=== PATIENT | female | born 1935 | race Caucasian/White ===

== ENCOUNTER 2017-07-11 19:20 | Inpatient (IN) | payer OTHER, MEDICAID ==
[~2017-07-11] VITALS: Ht 162.6 cm; Wt 64.0 kg
--- NOTE | 2017-07-11 19:20 | NUR ---
Patient was BIBA and taken to bed 08 via gurney per EMS.
[2017-07-11 19:23] VITALS: BP 184/115
--- NOTE | 2017-07-11 19:25 | NUR ---
82 y/o f biba from [facility] FOR ALOC X 3 HRS AGO. PER EMS STAFF UNFAMILIAR WITH PT MENTAL STATUS BASELINE D/T PT ARRIVED TO THEIR FACILITY X 3 DAYS AGO. PT NON-VERBAL AT THE MOMENT, RESPONDS TO VERBAL STIMULI WITH HEAD MOVEMENT AND CLOSING HER EYES. PT DENIES ANY PAIN AT THE MOMENT.HX CVA, DM, DEMENTIA,HTN, PACEMAKER, LEFT SIDED WEAKNESS. ON ASSISTANT CORPORATE CONTROLLER, ER MD MADE AWARE OF VS.
--- NOTE | 2017-07-11 19:25 | NUR ---
Note undone in EDM - 07/11/17 at 0 by JEROD 82 y/o f tono from [facility] FOR ALOC X 3 HRS AGO. PER EMS STAFF UNFAMILIAR WITH PT MENTAL STATUS BASELINE D/T PT ARRIVED TO THEIR FACILITY X 3 DAYS AGO. PT APHASIC, RESPONDS TO VERBAL STIMULI WITH HEAD MOVEMENT AND CLOSING HER EYES. PT DENIES ANY PAIN AT THE MOMENT.HX CVA, DM, DEMENTIA,HTN, PACEMAKER, LEFT SIDED WEAKNESS. ON NEONATAL NURSE, ER MD MADE AWARE OF VS.
[2017-07-11] MEDS ORDERED: NACL 0.9% 500 ML IV SCH (19:26)
[2017-07-11] MEDS ORDERED: ASPI81CT89 PO (19:28)
[2017-07-11] MEDS ORDERED: FLUC200T PO (19:28)
[2017-07-11] MEDS ORDERED: METF500T PO (19:28)
[2017-07-11] MEDS ORDERED: VAS10 PO (19:28)
[2017-07-11] MEDS ORDERED: ACET-2619 PO (19:28)
[2017-07-11 20:02] LABS: BASOPHILS # (AUTO) 0.1 K/uL (0.00-0.22); EOSINOPHILS # (AUTO) 0.3 K/uL (0-0.4); EOSINOPHILS % (AUTO) 3.6 % (0.0-4.0); HEMATOCRIT 40.8 % (36-48); HEMOGLOBIN 13.7 g/dL (12.0-16.0); LYMPHOCYTES # (AUTO) 2.1 K/uL (2.5-16.5); LYMPHOCYTES % (AUTO) 29.3 % (20.5-51.1); MEAN CORPUSCULAR HEMOGLOBIN 31 pg (27-31); MEAN CORPUSCULAR HGB CONC 34 g/dL (33-37); MEAN CORPUSCULAR VOLUME 92 fL (80-94); MONOCYTES # (AUTO) 0.5 K/uL (0.8-1.0); MONOCYTES % (AUTO) 7.4 % (1.7-9.3); NEUTROPHILS # (AUTO) 4.1 K/uL (1.8-7.7); NEUTROPHILS % (AUTO) 58.7 % (42.2-75.2); PLATELET COUNT (AUTO) 246 K/uL (140-450); RED BLOOD CELL COUNT(AUTO) 4.43 MIL/uL (4.20-5.40); RED CELL DISTRIBUTION WIDTH 11.9 % (11.6-13.7); WHITE BLOOD COUNT (AUTO) 7.1 K/uL (4.8-10.8)
[2017-07-11 20:27] LABS: PROTHROMBIN TIME 10.8 secs (10.8-13.4)
--- NOTE | 2017-07-11 20:30 | NUR ---
PT VERBALIZED TO FEEL PAIN TO R SIDE OF HEAD AND FACE. PT STATES SHE FELL YESTERDAY AT [facility] WHERE SHE CAME FROM TODAY. ER MADE AWARED.
[2017-07-11 20:31] LABS: APPEARANCE,URINE HAZY (CLEAR); BILIRUBIN,URINE 1+ (NEGATIVE); BLOOD, URINE NEGATIVE (NEGATIVE); COLOR,URINE YELLOW (YELLOW); LEUKOCYTE ESTERASE ,URINE NEGATIVE (NEGATIVE); NITRITE, URINE NEGATIVE (NEGATIVE); PH,URINE 5.5 (5.0-9.0); UGLUCOSE TRACE (NEGATIVE)
[2017-07-11 20:37] LABS: RBC,URINE 0-5 (RARE) /HPF (0-5)
[2017-07-11 20:43] LABS: ANION GAP 10.8 (8-16); ASPARTATE AMINOTRANSFERASE 14 U/L (15-37); CARBON DIOXIDE 32.3 mmol/L (21-32); CHLORIDE 107 mmol/L (98-107); CREATININE 1.3 mg/dL (0.6-1.3); GLUCOSE 249 mg/dL (74-106); POTASSIUM 4.1 mmol/L (3.5-5.1); SODIUM SERUM 146 mmol/L (136-145); TOTAL BILIRUBIN 0.6 mg/dL (0.0-1.0); UREA NITROGEN, BLOOD 21 mg/dL (7-18)
[2017-07-11 20:44] LABS: ALBUMIN 2.8 g/dL (3.4-5.0)
--- NOTE | 2017-07-11 20:54 | NUR ---
ER MD MADE AWARE OF PT BP READINGS 190/80. PT DENIES ANY CHEST PAIN AT THE MOMENT. C/O PAIN TO R SIDE OF HEAD AND FACE.
[2017-07-11] MEDS ORDERED: KETOROLAC 30 MG/ML VIAL IVP ONE (20:55)
--- NOTE | 2017-07-11 21:02 | NUR ---
Patient taken to CT.
[2017-07-11] MEDS ORDERED: LEVOFLOXACIN 500 MG/D5W PREMIX 100 ML IV ONE (21:10)
--- NOTE | 2017-07-11 21:12 | NUR ---
PT BACK FROM CT SCAN.
[2017-07-11] MEDS ORDERED: hydrALAZINE 20 MG/ML VIAL IVP ONE (21:25)
[2017-07-11] MEDS ORDERED: ACETAMINOPHEN 325 MG TAB PO PRN (21:35)
[2017-07-11] MEDS ORDERED: ONDANSETRON 4 MG/2 ML VIAL IM/IVP PRN (21:35)
[2017-07-11] MEDS ORDERED: MORPHINE SULFATE 2 MG/ML SYR IVP PRN (21:35)
[2017-07-11] MEDS ORDERED: HYDROcodone/APAP 7.5/325 MG 1 TAB PO PRN (21:35)
[2017-07-11] MEDS ORDERED: DOCUSATE SODIUM 100 MG GELCAP PO PRN (21:35)
--- NOTE | 2017-07-11 21:54 | NUR ---
Patient will be admitted to care of DR STARK.. Admited to TELEMETRY. Will go to room 121B. Belongings list completed. Report to JUANY REYES.
--- NOTE | 2017-07-11 21:55 | NUR ---
PT TAKEN VIA GURNEY BY RN AND EMT TO FLOOR. NO S/S OF DISTRESS NOTED UPON TRANFER.
[2017-07-11 22:00] VITALS: BP 175/80
--- NOTE | 2017-07-11 22:00 | NUR ---
ADMITTED A 82F FROM ER. CAME BY SAUNDRA DUE TO ALOC, UTI, S/P FALL . PT IS AWAKE BUT CONFUSED. LUXEMBOURGISH SPEAKING. BEDREST. SKIN ASSESSMENT DONE . SKIN INTACT, WITH SMALL OLD BUMP ON THE LT WRIST. HAS IV ACCESS ON THE LT HAND #20 , LEVAQUIN IVPB STILL INFUSING. RODNEY EYES WITH SLIGHT REDNESS. REPOSITIONED PT FOR COMFORT. BED ON LOW POSITION. BED ALARM ON FOR SAFETY. CALL LIGHT PLACED WITHIN EASY REACH. ROOM CLOSED TO STATION FOR FREQUENT ROUNDS . WILL FOLLOW UP ALL ADMIT ORDERS.
[2017-07-11 22:18] LABS: CHOL/HDL RATIO 7.7 (1-4.5); FREE T4 (FREE THYROXINE) 0.96 ng/dL (0.76-1.46); MAGNESIUM 2.1 mg/dL (1.8-2.4); PHOSPHORUS 3.9 mg/dL (2.5-4.9); THYROID STIMULATING HORMONE 1.86 uIU/mL (0.34-3.74)
[2017-07-11] MEDS: NACL 0.9% 1,000 ML IV SCH (22:21)
[2017-07-11] MEDS ORDERED: ALBUTEROL SULFATE/IPRATROPIU 3 ML SOL IH PRN (22:25)
[2017-07-11] MEDS ORDERED: FUROSEMIDE 100 MG/10 ML VIAL IV SCH (22:25)
[2017-07-11] MEDS ORDERED: LEVOFLOXACIN 500 MG/D5W PREMIX 100 ML IV SCH (22:25)
--- NOTE | 2017-07-11 22:30 | NUR ---
DR. ONTIVEROS ,RESIDENT CAME AND SEEN AND EXAMINED PT.
[2017-07-11] MEDS ORDERED: DEXTROSE 50% 50 ML SYR IVP PRN (22:40)
--- NOTE | 2017-07-11 22:57 | NUR ---
MRSA NARES SPECMEN COLLECTED AND WILL SEND TO LAB.
--- NOTE | 2017-07-11 23:10 | NUR ---
CALLED [facility] AND ABLE TO TO TALKED TO JUANY JOHANSEN. SHE SAID PT WAS ADMITTED THERE FROM [facility] LAST JUL 09. SHE SAID PT DID NOT HAVE ANY FALL BUT JUST FOUND ALTERED AFTER FAMILY WHO VISITED LEFT THE FACILITY. NO FLU VACCINE GIVEN THERE. WILL HAVE TO CALL FAMILY.
--- NOTE | 2017-07-11 23:15 | NUR ---
PT ALTERED ,TRIED TO CALL FAMILY TO GET OTHER MEDICAL INFORMATION, SUZY MCCORMACK TEL BUT NO ANSWER. WILL FOLLOW UP CALL TOMORROW.
[2017-07-12] MEDS ORDERED: ASPIRIN 81 MG TAB.CHEW PO SCH
[2017-07-12 00:05] VITALS: BP 161/63
--- NOTE | 2017-07-12 01:40 | NUR ---
PT PULLED OUT IV ACCESS ON THE LT HAND. DISCONTINUED. SHAMIKA STARTED NEW IV ACCESS ON THE RT HAND#22. CLEAR AND PATENT. WRAPPED WITH KERLIX. IVF INFUSING WELL .
--- NOTE | 2017-07-12 03:00 | NUR ---
SLEEPING WELL. NO S/S OD ANY DISCOMFORT NOR DISTRESS NOTED.
[2017-07-12] MEDS ORDERED: CLINDAMYCIN 600 MG/4 ML VIAL ONE (03:37)
[2017-07-12 03:56] VITALS: BP 162/71
[2017-07-12] MEDS: CLINDAMYCIN 600 MG in DEXTROSE 5% 50 ML IV SCH ×3 (04:47→20:17)
[2017-07-12] MEDS: BLOOD GLUCOSE MONITORING 1 DEV DEV FS SCH ×4 (06:06→20:25)
[2017-07-12] MEDS: INSULIN LISPRO SLIDING SCALE 100 UNITS/ML VIAL SUBQ PRN ×3 (06:08→20:24)
--- NOTE | 2017-07-12 06:08 | NUR ---
BLOOD SUGAR WAS CHECKED RESULT 237. INSULIN COVERAGE GIVEN ORDERED. STILL AHS IVF INFUSING WELL ON THE RT HAND #22.
--- NOTE | 2017-07-12 06:15 | NUR ---
SCD MACHINE APPLIED TO BILATERAL LOWER LEG ORDERED.
--- NOTE | 2017-07-12 06:37 | NUR ---
ABLE TO CONTACT DM HOWARD THIS AM . MADE AWARE OF THE ADMISSION OF HIS MOM HERE. HE IS COMING TO SEE PT TODAY.
--- NOTE | 2017-07-12 07:25 | NUR ---
ENDORSED PT IN STABLE CONDITION TO AM NURSE.
--- NOTE | 2017-07-12 07:30 | NUR ---
RECEIVED REPORT FROM STEREO COMPILER NURSE, PT IS SLEEPING IN BED BUT EASILY AWAKEN, PT IS A/OX2, AMBULATES WITH ASSIST, IV IS ON THE RIGHT HAND, PATENT, INTACT, FLUSHING WELL, SKIN IS INTACT, PT IS ON O2 2L NC, NO S/S OF RESPIRATORY DISTRESS OR DISCOMFORT NOTED, DISCUSSED PLAN OF CARE WITH PT, PT VERBALIZED UNDERSTANDING, SAFETY/FALL/ASPIRATION PRECAUTIONS ARE IN PLACE, CALL LIGHT IS WITHIN REACH, WILL CONTINUE TO MONITOR.
[2017-07-12 07:32] LABS: BASOPHILS # (AUTO) 0.1 K/uL (0.00-0.22); BASOPHILS % (AUTO) 2.3 % (0.0-2.0); EOSINOPHILS # (AUTO) 0.2 K/uL (0-0.4); HEMATOCRIT 40.8 % (36-48); LYMPHOCYTES # (AUTO) 1.6 K/uL (2.5-16.5); LYMPHOCYTES % (AUTO) 26.8 % (20.5-51.1); MEAN CORPUSCULAR HEMOGLOBIN 31 pg (27-31); MEAN CORPUSCULAR HGB CONC 34 g/dL (33-37); MEAN CORPUSCULAR VOLUME 92 fL (80-94); MONOCYTES # (AUTO) 0.5 K/uL (0.8-1.0); MONOCYTES % (AUTO) 7.9 % (1.7-9.3); NEUTROPHILS # (AUTO) 3.4 K/uL (1.8-7.7); PLATELET COUNT (AUTO) 246 K/uL (140-450); RED BLOOD CELL COUNT(AUTO) 4.46 MIL/uL (4.20-5.40); WHITE BLOOD COUNT (AUTO) 5.8 K/uL (4.8-10.8)
[2017-07-12 07:46] LABS: ANION GAP 11.1 (8-16); CARBON DIOXIDE 30.7 mmol/L (21-32); CHLORIDE 108 mmol/L (98-107); CREATININE 1.2 mg/dL (0.6-1.3); GLUCOSE 233 mg/dL (74-106); POTASSIUM 3.8 mmol/L (3.5-5.1); SODIUM SERUM 146 mmol/L (136-145); UREA NITROGEN, BLOOD 20 mg/dL (7-18)
[2017-07-12 08:00] VITALS: BP 183/84
[2017-07-12] MEDS: FUROSEMIDE 100 MG/10 ML VIAL IV SCH (08:18)
[2017-07-12] MEDS: ASPIRIN 81 MG TAB.CHEW PO SCH (08:18)
[2017-07-12] MEDS: PANTOPRAZOLE 40 MG INJ VIAL IVP SCH (08:18)
--- NOTE | 2017-07-12 08:18 | NUR ---
DUE MEDICATIONS GIVEN, PT TOLERATED WELL, WILL CONTINUE TO MONITOR.
[2017-07-12] MEDS ORDERED: metFORMIN 500 MG TAB PO SCH (09:00)
[2017-07-12] MEDS ORDERED: ENALAPRIL 10 MG TAB PO SCH ×2 (09:00→12:45)
[2017-07-12] MEDS ORDERED: ATORVASTATIN 80 MG TAB PO SCH (09:00)
--- NOTE | 2017-07-12 10:32 | NUR ---
PATIENT HAS BEEN SCREENED AND CATEGORIZED HIGH NUTRITION RISK. PATIENT WILL BE SEEN WITHIN 1-2 DAYS OF ADMISSION. 07/12/17-07/13/[address]
[2017-07-12] MEDS: NACL 0.9% 1,000 ML IV SCH ×2 (10:54→13:08)
--- NOTE | 2017-07-12 11:00 | NUR ---
CABLE TOOL OPERATOR IS AT PATIENT'S BEDSIDE.
--- NOTE | 2017-07-12 11:50 | NUR ---
PATIENT IS RESTING IN BED, PATIENT'S FAMILY ARE AT BEDSIDE. CALL LIGHT WITHIN REACH.
[2017-07-12 12:00] VITALS: BP 186/80
--- NOTE | 2017-07-12 12:30 | NUR ---
I LET DR. PEARCE KNOW THE PATIENT'S BLOOD PRESSURE WAS ELEVATED 186/80 AND HR: 72, DR. PEARCE SAID HE WOULD PUT IN AN ORDER TO GIVE VASOTEC 10MG NOW.
--- NOTE | 2017-07-12 12:47 | NUR ---
CALLED SMILEY FROM [facility] SHE SAID THEY ARE AT FULL RISK AND JUST FAX REVIEW TO THEM. I FAXED INITIAL REVIEW TO [phone] PHONE SMILEY [phone]
--- NOTE | 2017-07-12 13:20 | NUR ---
RECHECKED PATIENT'S BP 133/68, HR: 73 AT THIS TIME.
--- NOTE | 2017-07-12 14:25 | NUR ---
CALLED [facility] TO ASK IF THEY HAD ANY INFORMATION ON THE PATIENT'S PACEMAKER BECAUSE THE DOCTOR WAS REQUESTING TO HAVE THE PACEMAKER INTERROGATED. I WAS TOLD BY [facility] THAT THEY DID NOT HAVE ANY INFORMATION ON THE PACEMAKER.
--- NOTE | 2017-07-12 14:46 | NUR ---
CALLED [facility] AT , I REACHED THEIR VOICEMAIL, I LET THEM KNOW I WAS CALLING FROM [facility] TO REQUEST MEDICAL RECORDS I LEFT MY NAME, PATIENT'S NAME/ AND CALL BACK NUMBER. I LET THEM KNOW I WAS CALLING TO OBTAIN THE FAX NUMBER TO WHERE I COULD SUBMIT MY REQUEST.
--- NOTE | 2017-07-12 15:06 | NUR ---
07/12/17 RD INITIAL ASSESSMENT COMPLETED PLEASE REFER TO NUTRITION ASSESSMENT UNDER CARE ACTIVITY FOR ESTIMATED NUTRITIONAL NEEDS. 1. CONTINUE PUREE + 60 GMS CONSISTENT CARBOHYDRATE DIET 2. ADD DIET HEALTH SHAKE TID 3. ENCOURAGE INCREASED PO INTAKE TOLERATED 4. RD TO FOLLOW UP WITHIN 2-3 DAYS; HIGH RISK TATUM ALAS, ILEANA
[2017-07-12 16:00] VITALS: BP 148/63
--- NOTE | 2017-07-12 16:00 | NUR ---
FAXED OVER REQUEST FOR MEDICAL RECORDS TO [facility] AT .
--- NOTE | 2017-07-12 17:30 | NUR ---
PT SLEEPING IN BED AT THIS TIME, NO S/S OF RESPIRATORY DISTRESS OR DISCOMFORT NOTED, CALL LIGHT WITHIN REACH.
[2017-07-12] MEDS: metFORMIN 500 MG TAB PO SCH (17:34)
--- NOTE | 2017-07-12 19:25 | NUR ---
ENDORSED PT TO PROCESS ENG NURSE FOR CONTINUITY OF CARE, PT STABLE AT THIS TIME.
--- NOTE | 2017-07-12 19:28 | NUR ---
RECEIVED PT AWAKE ON BED, AAOX2 DANISH SPEAKING ONLY, TALKING TO FAMILY MEMBERS AT BEDSIDE, VITAL SIGNS TAKEN, BP SLIGHTLY ELEVATED, ASYMPTOMATIC, WILL GIVE DUE BP MEDICATION, IVF INFUSING WELL, PLAN OF CARE DISCUSS WITH DAUGHTER AT BEDSIDE, SAFETY MEASURES IN PLACE, SIDE RAILS UP AND BED ALARM ON, CALL LIGHT WITHIN REACH.
[2017-07-12 20:00] VITALS: BP 165/72
[2017-07-12] MEDS: ENALAPRIL 10 MG TAB PO SCH (20:17)
[2017-07-12] MEDS: LEVOFLOXACIN 250 MG/D5 PREMIX 50 ML IV SCH (20:25)
--- NOTE | 2017-07-12 20:30 | NUR ---
BLOOD SUGAR CHECKED WITH 232 RESULT, COVERAGE GIVEN, PT ABLE TO TOLERATE MILK SHAKE GIVEN BY DAUGHTER, DUE MEDS CRUSHED AND GIVEN WITH APPLE SAUCE, ALL NEEDS ATTENDED.
--- NOTE | 2017-07-12 22:00 | NUR ---
PT INCONTINENT OF URINE, PERINEAL CARE DONE, KEPT SKIN CLEAN AND DRY, REPOSITIONED Q2H AND OFFLOAD PRESSURE AREAS, MONITORED CLOSELY.
--- NOTE | 2017-07-12 23:16 | NUR ---
PT OCCASIONALLY TAKE OFF NASAL CANNULA, SAT-93-94% ON ROOM AIR, REINFORCE TO LEAVE NASAL CANNULA IN PLACE BUT PT CONFUSED, UNABLE TO FOLLOW COMMAND, PUT BACK BACK NASAL CANNULA, FREQUENT ROUNDS MADE.
[2017-07-13] VITALS (7 sets, daily range): BP systolic 136–216; BP diastolic 58–83
--- NOTE | 2017-07-13 01:30 | NUR ---
PT STILL TAKING OFF NASAL CANNULA, SAT-93%, NO SIGNS OF SOB OR PAIN, IV LINE BEEPING, SITE RE-TAPED AND COVERED WITH ROLLED GAUZE, MONITORED CLOSELY.
--- NOTE | 2017-07-13 04:00 | NUR ---
PT SLEEPING, EASILY AROUSABLE, VITAL SIGNS TAKEN, BP SLIGHTLY ELEVATED, ASYMPTOMATIC, SAT-94% ON ROOM AIR, IVF INFUSING WELL, MONITORED CLOSELY.
[2017-07-13] MEDS: NACL 0.9% 1,000 ML IV SCH ×2 (04:35→13:52)
[2017-07-13] MEDS: CLINDAMYCIN 600 MG in DEXTROSE 5% 50 ML IV SCH ×3 (04:36→20:01)
--- NOTE | 2017-07-13 05:50 | NUR ---
PT SLEEPING, EASILY AROUSABLE, BLOOD SUGAR CHECKED WITH 234 RESULT, COVERAGE GIVEN, NO DISTRESS NOTED, IVF INFUSING WELL, MONITORED CLOSELY.
[2017-07-13] MEDS: INSULIN LISPRO SLIDING SCALE 100 UNITS/ML VIAL SUBQ PRN ×3 (06:03→17:16)
[2017-07-13] MEDS: BLOOD GLUCOSE MONITORING 1 DEV DEV FS SCH ×4 (06:35→20:40)
--- NOTE | 2017-07-13 07:13 | NUR ---
PT AWAKE, NO SIGNS OF DISTRESS, REPORT GIVEN TO JUANY COBURN FOR CONTINUITY OF CARE.
--- NOTE | 2017-07-13 07:15 | NUR ---
RECEIVED REPORT FROM SENIOR ORACLE PL SQL DEVELOPER NURSE, PT IS AWAKE, RESTING IN BED, PT IS A/OX2, PT IS ON BEDREST, IV IS ON THE RIGHT HAND, PATENT, INTACT, FLUSHING WELL, SKIN IS INTACT, NO S/S OF RESPIRATORY DISTRESS OR DISCOMFORT NOTED, DISCUSSED PLAN OF CARE WITH PT, PT VERBALIZED UNDERSTANDING, SAFETY/FALL/ASPIRATION PRECAUTIONS ARE IN PLACE, CALL LIGHT IS WITHIN REACH, WILL CONTINUE TO MONITOR.
[2017-07-13 07:37] LABS: ANION GAP 10.9 (8-16); CHLORIDE 108 mmol/L (98-107); CREATININE 1.2 mg/dL (0.6-1.3); GLUCOSE 247 mg/dL (74-106); POTASSIUM 3.9 mmol/L (3.5-5.1); SODIUM SERUM 145 mmol/L (136-145); UREA NITROGEN, BLOOD 18 mg/dL (7-18)
[2017-07-13 08:54] LABS: T4 (THYROXINE) 6.1 ug/dL (4.5-12.0)
[2017-07-13] MEDS: PANTOPRAZOLE 40 MG INJ VIAL IVP SCH (08:57)
[2017-07-13] MEDS: FUROSEMIDE 100 MG/10 ML VIAL IV SCH (08:58)
[2017-07-13] MEDS: metFORMIN 500 MG TAB PO SCH ×2 (08:58→17:13)
[2017-07-13] MEDS: ATORVASTATIN 20 MG TAB PO SCH (08:59)
[2017-07-13] MEDS: ENALAPRIL 10 MG TAB PO SCH ×2 (08:59→20:01)
[2017-07-13] MEDS: ASPIRIN 81 MG TAB.CHEW PO SCH (08:59)
--- NOTE | 2017-07-13 09:00 | NUR ---
DUE MEDICATIONS GIVEN. WILL NOTIFY DOCTOR PT IS HAVING DIFFICULTY SWALLOWING MEDICATION.
--- NOTE | 2017-07-13 11:00 | NUR ---
PT IS RESTING IN BED, NO S/S OF RESPIRATORY DISTRESS OR DISCOMFORT NOTED, FAMILY IS AT PATIENT'S BEDSIDE.
--- NOTE | 2017-07-13 11:37 | NUR ---
DR. KEMP (PRIOR AUTHORIZATION TECHNICIAN) IN PATIENT'S ROOM SPEAKING WITH PATIENT AND PATIENT'S FAMILY MEMBERS.
--- NOTE | 2017-07-13 12:30 | NUR ---
CHECKED PATIENT'S VITAL SIGNS, CURRENT BLOOD PRESSURE 216/80, HR:60, DR. LOZANO NOTIFIED. PER DR. LOZANO WILL ORDER BLOOD PRESSURE MEDICATION FOR PT STAT.
[2017-07-13] MEDS ORDERED: hydrALAZINE 20 MG/ML VIAL IVP PRN (12:45)
--- NOTE | 2017-07-13 13:40 | NUR ---
BLEACH RANGE OPERATOR AT PATIENT BEDSIDE AT THIS TIME.
--- NOTE | 2017-07-13 13:54 | NUR ---
FAXED CONCURRENT REVIEW TO [facility] [phone] PHONE SMILEY [phone]
--- NOTE | 2017-07-13 14:10 | NUR ---
FAXED OVER REQUEST FOR RELEASE OF MEDICAL RECORDS TO [facility] ([place]
--- NOTE | 2017-07-13 17:21 | NUR ---
* ST NOTE * Pt seen at bedside w/family and nsg present. Pt consenting to evaluation w/family present. Bedside dysphagia and oral mechanism exams completed. See evaluation report for further details. Pt tolerating 4/4 alternating PO trials of puree apple sauce 3-5 CCs at a time via a spoon w/o s/s of aspiration. Pt also tolerating 4/6 alternating PO trials of thin liquid apple juice via a straw w/out s/s of aspiration but exhibiting coughing after PO intake of 2/6 trials of thin liquid apple juice via a straw. Pt then tolerating 4/4 alternating PO trials of nectar-thick apple juice 3-5 CCs at a time via a spoon w/o s/s of aspiration. Pt requiring minimal to moderate verbal, tactile & visual cueing to clear oral cavity of pocketed foods. Pt, caregivers/family and caregiver/nsg education completed regarding safe swallow compensatory strategies pt, caregivers/family and caregivers/nsg could utilize to aid pt w/swallow function and to clear oral cavity of pocketed food/residue, w/pt indifferent but caregivers/family and caregivers/nsg verbalizing understanding and agreement w/clinician's recommendations. It is thus recommended pt's PO diet consistency be modified to Puree textures w/[place]-thickened liquids for all meals, with pt indifferent but caregivers/family and caregivers/nsg verbalizing understanding and agreement. No further ST follow up recommended at this time. Pt, caregivers/family and caregiver/nsg education completed regarding results of evaluation, benefits of abiding by aspiration precautions and recommended PO diet consistency, and prognosis for improvement, with pt indifferent but caregivers/family and caregivers/nsg verbalizing understanding and agreement w/clinician's recommendations. Recommend: - PO diet consistency of PUREE TEXTURES W/NECTAR-THICK LIQUIDS - Sit pt up at 90 degree angle during PO intake - Cueing/Reminders for pt's family during setup of food tray of aspiration precautions prior to PO intake - CLOSE supervision during PO intake by caregivers/staff/family to assure STRICT aspiration precautions are in place - Pt requires total assistance w/feeding - Feeder to sit pt up at 70-90 degree angle during PO intake, feed pt slowly, alternating btwn solids and liquids and utilizing small bites/sips - Check for pocketed food and complete oral care after PO intake No further ST follow up recommended at this time. G8996 CK G8997 CJ G8998 CJ NOMS Level 3 Time In/Out 16:30 - 17:00
--- NOTE | 2017-07-13 17:30 | NUR ---
PT IS RESTING IN BED, NO S/S OF RESPIRATORY DISTRESS OR DISCOMFORT NOTED, FAMILY IS AT BEDSIDE.
--- NOTE | 2017-07-13 19:19 | NUR ---
ENDORSED PT TO DRAFTER ELECTROMECHANICAL NURSE FOR CONTINUITY OF CARE, PT STABLE AT THIS TIME.
--- NOTE | 2017-07-13 19:20 | NUR ---
RECEIVED PT SLEEPING, EASILY AROUSABLE, CITIZEN [place] SPEAKING, AAOX1, VITAL SIGNS TAKEN, BP SLIGHTLY ELEVATED, ASYMPTOMATIC, ON O2 AT 2L/NC, NO SIGNS OF PAIN OR SOB NOTED, RT LEG SPLINT IN PLACE COVERED WITH RAFAELA WRAPPED, ELEVATED WITH PILLOW, IVF INFUSING WELL, SITE COVERED WITH RAFAELA WRAPPED, SAFETY MEASURES IN PLACE, CALL LIGHT WITHIN REACH, REPOSITION Q2H AND OFFLOAD PRESSURE AREAS.
--- NOTE | 2017-07-13 20:30 | NUR ---
BLOOD SUGAR CHECKED WITH 133 RESULT, NO COVERAGE NEEDED, HOB ELEVATED FOR ASPIRATION PRECAUTION, DUE PO MEDS CRUSHED AND GIVEN WITH SMALL AMOUNT OF APPLE SAUCE, INSTRUCTED TO OPEN MOUTH AND PT JUST POCKETING IT AND THEN SPIT IT OUT, GAVE THE REST OF THE MEDICATION TOGETHER WITH THICKENED APPLE JUICE, SWALLOWED THE MEDS AFTER SEVERAL MINUTES OF COAXING, DUE IV ANTIBIOTIC ADMINISTERED, ALL NEEDS ATTENDED.
[2017-07-13] MEDS: LEVOFLOXACIN 250 MG/D5 PREMIX 50 ML IV SCH (20:37)
--- NOTE | 2017-07-13 22:10 | NUR ---
PT OCCASIONALLY TAKES OFF NASAL CANNULA, SAT-94% ON ROOM AIR, MONITORED CLOSELY.
[2017-07-13] MEDS ORDERED: METOPROLOL 5 MG/5 ML VIAL IVP SCH (23:25)
--- NOTE | 2017-07-13 23:41 | NUR ---
PT AWAKE, VITAL SIGNS TAKEN, BP-180/77, HR-68, NO SIGNS OF PAIN OR SOB, DR ONTIVEROS MADE AWARE, WITH NEW ORDER, METOPROLOL IVP GIVEN ORDERED, MONITORED CLOSELY.
[2017-07-14 00:42] VITALS: BP 178/68
--- NOTE | 2017-07-14 00:45 | NUR ---
PT AWAKE, BP RECHECKED-178/68, HR-63, ASYMPTOMATIC, NO SIGNS OF PAIN OR SOB, DR ONTIVEROS MADE AWARE, NO NEW ORDER, DR ONTIVEROS SAID JUST CONTINUE TO MONITOR PT.
--- NOTE | 2017-07-14 03:30 | NUR ---
PT SLEEPING, EASILY AROUSABLE, VITAL SIGNS TAKEN, BP-179/72, HR-65, ASYMPTOMATIC, NO SIGNS OF PAIN OR SOB NOTED, DR ONTIVEROS MADE AWARE, NO NEW ORDER, HE SAID TO CONTINUE MONITOR PT AND HE WILL ENDORSE TO AM DOCTORS, CHARGE NURSE SUZAN MADE AWARE.
[2017-07-14 04:00] VITALS: BP 179/72
[2017-07-14] MEDS: CLINDAMYCIN 600 MG in DEXTROSE 5% 50 ML IV SCH ×3 (04:15→20:43)
[2017-07-14] MEDS: NACL 0.9% 1,000 ML IV SCH ×3 (04:15→21:07)
[2017-07-14] MEDS: INSULIN LISPRO SLIDING SCALE 100 UNITS/ML VIAL SUBQ PRN ×3 (05:57→17:30)
--- NOTE | 2017-07-14 06:03 | NUR ---
PT AWAKE, BP RECHECKED-147/50, HR-68, DR ONTIVEROS MADE AWARE, BLOOD SUGAR CHECKED WITH 193 RESULT, COVERAGE GIVEN, NO DISTRESS NOTED, MONITORED CLOSELY.
[2017-07-14 06:25] LABS: BASOPHILS # (AUTO) 0.2 K/uL (0.00-0.22); BASOPHILS % (AUTO) 2.9 % (0.0-2.0); EOSINOPHILS # (AUTO) 0.3 K/uL (0-0.4); EOSINOPHILS % (AUTO) 4.4 % (0.0-4.0); HEMATOCRIT 37.5 % (36-48); HEMOGLOBIN 12.8 g/dL (12.0-16.0); LYMPHOCYTES # (AUTO) 1.8 K/uL (2.5-16.5); LYMPHOCYTES % (AUTO) 27.3 % (20.5-51.1); MEAN CORPUSCULAR HEMOGLOBIN 32 pg (27-31); MEAN CORPUSCULAR HGB CONC 34 g/dL (33-37); MEAN CORPUSCULAR VOLUME 93 fL (80-94); MONOCYTES # (AUTO) 0.2 K/uL (0.8-1.0); MONOCYTES % (AUTO) 3.7 % (1.7-9.3); NEUTROPHILS # (AUTO) 4.2 K/uL (1.8-7.7); NEUTROPHILS % (AUTO) 61.7 % (42.2-75.2); PLATELET COUNT (AUTO) 232 K/uL (140-450); RED BLOOD CELL COUNT(AUTO) 4.02 MIL/uL (4.20-5.40); RED CELL DISTRIBUTION WIDTH 11.8 % (11.6-13.7); WHITE BLOOD COUNT (AUTO) 6.7 K/uL (4.8-10.8)
[2017-07-14 06:42] LABS: ANION GAP 11.9 (8-16); CHLORIDE 108 mmol/L (98-107); CREATININE 1.1 mg/dL (0.6-1.3); GLUCOSE 181 mg/dL (74-106); POTASSIUM 3.9 mmol/L (3.5-5.1); SODIUM SERUM 144 mmol/L (136-145); UREA NITROGEN, BLOOD 14 mg/dL (7-18)
[2017-07-14] MEDS: BLOOD GLUCOSE MONITORING 1 DEV DEV FS SCH ×4 (06:49→20:54)
--- NOTE | 2017-07-14 07:15 | NUR ---
RECEIVED REPORT FROM SAWING AND ASSEMBLY SUPERVISOR, PT IS SLEEPING IN BED, PT IS AOX1, IV IS ON THE RIGHT HAND, PATENT, INTACT, INFUSING WELL, SKIN IS INTACT, NO S/S OF ACUTE DISTRESS NOTED. PT IS ON ROOM AIR. RIGHT LEG SPLINT INTACT, CLEAN AND DRY. FALL, ASPIRATION, AND BED SORE PRECAUTIONS ARE IN PLACE. CALL LIGHT IS WITHIN REACH, WILL CONTINUE TO MONITOR.
--- NOTE | 2017-07-14 07:18 | NUR ---
PT SLEEPING, NO SIGNS OF DISTRESS, REPORT GIVEN TO JUANY DEE FOR CONTINUITY OF CARE.
[2017-07-14 08:28] VITALS: BP 149/62
--- NOTE | 2017-07-14 09:30 | NUR ---
PT WAS MEDICATED WITH THICKENING LIQUID. PT TOLERATED WELL.
[2017-07-14] MEDS: FUROSEMIDE 100 MG/10 ML VIAL IV SCH (09:41)
[2017-07-14] MEDS: metFORMIN 500 MG TAB PO SCH ×2 (09:42→17:02)
[2017-07-14] MEDS: ATORVASTATIN 20 MG TAB PO SCH (09:42)
[2017-07-14] MEDS: PANTOPRAZOLE 40 MG INJ VIAL IVP SCH (09:42)
[2017-07-14] MEDS: ENALAPRIL 10 MG TAB PO SCH ×2 (09:43→20:42)
[2017-07-14] MEDS: ASPIRIN 81 MG TAB.CHEW PO SCH (09:43)
--- NOTE | 2017-07-14 10:30 | NUR ---
PHYSICAL THERAPY SEEN THE PT. PT WAS SITTING IN THE CHAIR. NO ACUTE DISTRESS NOTED.
[2017-07-14 12:00] VITALS: BP 175/72
--- NOTE | 2017-07-14 12:34 | NUR ---
CM NOTE CONCURRENT REVIEW FAXED TO [facility] / [phone], ATTN: SMILEY #[phone]
--- NOTE | 2017-07-14 15:40 | NUR ---
NOTIFIED . ABOUT PT'S SYSTOLIC BP 175. . DR WILL PUT IN NEW ORDERS.
--- NOTE | 2017-07-14 15:50 | NUR ---
[employer]TR[employer] PACEMAKER INTERROGATION DONE AT BEDSIDE.
[2017-07-14 16:00] VITALS: BP 182/68
[2017-07-14] MEDS ORDERED: amLODIPine 5 MG TAB PO SCH (16:30)
[2017-07-14] MEDS ORDERED: LACTOBACILLUS RHAMNOSUS GG 1 EACH CAP PO SCH (17:00)
--- NOTE | 2017-07-14 19:33 | NUR ---
ENDORSED PT TO SALES CLERK FOOD. PT IS IN STABLE CONDITION AND WITHOUT S/S OF DISTRESS.
--- NOTE | 2017-07-14 19:34 | NUR ---
RECEIVED BEDSIDE REPORT FROM DAY SHIFT NURSE, HERBERTH RN, PT STABLE, NO DISTRESS NOTED, AAOX2, SKIN INTACT, IV TO THE R HAND 24G RUNNING NS @ 50ML/HR, CALL LIGHT WITHIN REACH, FAMILY BY BEDSIDE, ALL SAFETY PRECAUTION MET, INITIAL ASSESSMENT DONE, WILL CONTINUE TO MONITOR.
[2017-07-14 19:59] VITALS: BP 162/66
[2017-07-14] MEDS: LEVOFLOXACIN 250 MG/D5 PREMIX 50 ML IV SCH (20:43)
--- NOTE | 2017-07-14 20:43 | NUR ---
DUE MEDICATION GIVEN, TRIED TO GIVE CRUSHED PO MEDS WITH THICKEN WATER, PT SPITS IT OUT. NO DISTRESS NOTED, CALL LIGHT WITHIN REACH, WILL CONTINUE TO MONITOR.
[2017-07-14] MEDS ORDERED: ENALAPRIL 10 MG TAB PO SCH (21:00)
--- NOTE | 2017-07-14 22:09 | NUR ---
PT WAS PICKED UP FOR CT HEAD W/O CONTRAST, PT STABLE.
--- NOTE | 2017-07-14 22:30 | NUR ---
PT BACK FROM CT, PT STABLE, NO DISTRESS NOTED, CALL LIGHT WITHIN REACH, WILL CONTINUE TO MONITOR.
[2017-07-15] VITALS (7 sets, daily range): BP systolic 126–191; BP diastolic 56–88
--- NOTE | 2017-07-15 00:30 | NUR ---
PT HAD A LARGE BM, SOFT TO FORM, YELLOW BROWNISH COLOR. PT RESTING, NO DISTRESS NOTED CALL LIGHT WITHIN REACH, WILL CONTINUE TO MONITOR.
--- NOTE | 2017-07-15 02:20 | NUR ---
CHECKED ON PT, PT SLEEPING, STABLE, NO DISTRESS NOTED, CALL LIGHT WITHIN REACH, WILL CONTINUE TO MONITOR.
--- NOTE | 2017-07-15 04:02 | NUR ---
PT BP 191/88, PAGED DR BUCHANAN, 0336 TALKED TO , STATED UNDERSTANDING AND WILL CHECK ORDERS.
[2017-07-15] MEDS: CLINDAMYCIN 600 MG in DEXTROSE 5% 50 ML IV SCH ×3 (04:56→20:16)
--- NOTE | 2017-07-15 04:56 | NUR ---
GAVE HYDRALAZINE 5MG IVP PER MD ORDER, WILL RECHECK BP IN 1 HR.
[2017-07-15] MEDS ORDERED: hydrALAZINE 20 MG/ML VIAL IVP SCH (05:00)
[2017-07-15] MEDS: NACL 0.9% 1,000 ML IV SCH (05:52)
--- NOTE | 2017-07-15 05:53 | NUR ---
RECHECKED BP 129/56 HR 77, PT STABLE, NO DISTRESS NOTED, CALL LIGHT WITHIN REACH, WILL CONTINUE TO MONITOR.
[2017-07-15] MEDS: BLOOD GLUCOSE MONITORING 1 DEV DEV FS SCH ×4 (06:11→20:15)
[2017-07-15 06:13] LABS: BASOPHILS # (AUTO) 0.2 K/uL (0.00-0.22); BASOPHILS % (AUTO) 1.3 % (0.0-2.0); EOSINOPHILS # (AUTO) 0.2 K/uL (0-0.4); EOSINOPHILS % (AUTO) 1.1 % (0.0-4.0); HEMATOCRIT 37.9 % (36-48); LYMPHOCYTES # (AUTO) 1.5 K/uL (2.5-16.5); LYMPHOCYTES % (AUTO) 10.9 % (20.5-51.1); MEAN CORPUSCULAR HEMOGLOBIN 32 pg (27-31); MEAN CORPUSCULAR HGB CONC 34 g/dL (33-37); MEAN CORPUSCULAR VOLUME 93 fL (80-94); MONOCYTES # (AUTO) 0.5 K/uL (0.8-1.0); MONOCYTES % (AUTO) 3.6 % (1.7-9.3); NEUTROPHILS # (AUTO) 11.5 K/uL (1.8-7.7); NEUTROPHILS % (AUTO) 83.1 % (42.2-75.2); PLATELET COUNT (AUTO) 236 K/uL (140-450); RED BLOOD CELL COUNT(AUTO) 4.09 MIL/uL (4.20-5.40); RED CELL DISTRIBUTION WIDTH 11.8 % (11.6-13.7); WHITE BLOOD COUNT (AUTO) 13.9 K/uL (4.8-10.8)
[2017-07-15] MEDS: INSULIN LISPRO SLIDING SCALE 100 UNITS/ML VIAL SUBQ PRN ×3 (06:24→16:50)
[2017-07-15 06:44] LABS: ANION GAP 9.8 (8-16); CHLORIDE 103 mmol/L (98-107); CREATININE 0.9 mg/dL (0.6-1.3); GLUCOSE 255 mg/dL (74-106); POTASSIUM 3.8 mmol/L (3.5-5.1); SODIUM SERUM 138 mmol/L (136-145); UREA NITROGEN, BLOOD 16 mg/dL (7-18)
--- NOTE | 2017-07-15 07:20 | NUR ---
GAVE BEDSIDE REPORT TO DAY SHIFT NURSE, ALEXANDER RN, PT STABLE, NO DISTRESS NOTED.
--- NOTE | 2017-07-15 07:31 | NUR ---
ENDORSEMENT WAS RECEIVED FROM AMY. PATIENT IS SLEEPING QUIETLY, RESPIRATION EVEN, UNLABOR, SKIN WARM DRY, COLOR WITHIN NORMAL LIMIT. IV 22G RIGHT FOREARM, WTIH NS @ 50 ML/HR. AT BEDSIDE. CALL LIGHT WITHIN REACH. WILL CONTINUE TO MONITOR.
--- NOTE | 2017-07-15 08:35 | NUR ---
CM NOTE CONCURRENT REVIEW FAXED TO [facility] / [phone], ATTN: SMILEY #[phone]
[2017-07-15] MEDS: ATORVASTATIN 20 MG TAB PO SCH (09:00)
[2017-07-15] MEDS: LACTOBACILLUS RHAMNOSUS GG 1 EACH CAP PO SCH (09:00)
[2017-07-15] MEDS ORDERED: amLODIPine 5 MG TAB PO SCH (09:00)
[2017-07-15] MEDS: ENALAPRIL 10 MG TAB PO SCH ×2 (09:00→20:18)
[2017-07-15] MEDS: ASPIRIN 81 MG TAB.CHEW PO SCH (09:00)
[2017-07-15] MEDS: PANTOPRAZOLE 40 MG INJ VIAL IVP SCH (09:21)
[2017-07-15] MEDS: FUROSEMIDE 20 MG/2 ML VIAL IVP SCH (09:23)
[2017-07-15] MEDS: metFORMIN 500 MG TAB PO SCH ×2 (09:23→17:00)
--- NOTE | 2017-07-15 09:34 | NUR ---
PATIENT IS SLEEPY, AROUSABLE TO VOICE OR TOUCH, BUT IMMEDIATELY FALLS BACK TO SLEEP, RESUFED TO SWALLOW. PO MEDS WERE HELD. DR. NUÑEZ WAS AT BEDSIDE. GRANDDAUGHTER WAS ALSO AT BEDSIDE. WILL CONTINUE TO MONITOR
--- NOTE | 2017-07-15 10:15 | NUR ---
PATIENT IS NOW AWAKE, SITTING UP, INTERACTING WITH FAMILY. TAKEN LIQUID, AND APPLESAUCE, NO ISSUE WITH SWALLOWING. DAUGHTER AND SON AT BEDSIDE.
--- NOTE | 2017-07-15 10:41 | NUR ---
BED BATH WAS GIVEN, ELIANE CARE WAS DONE. PATIENT TOLERATED WELL. FAMILY AT BEDSIDE. WILL CONTINUE TO MONITOR
[2017-07-15] MEDS: hydrALAZINE 20 MG/ML VIAL IVP PRN (12:48)
--- NOTE | 2017-07-15 12:48 | NUR ---
HYDRALAZINE GIVEN PER DR MONGE FOR BP 169/76, PT SLEEPING QUIETLY AROUSES EASILY BY VOICE, GRANDSON AT BEDSIDE. WILL CONTINUE TO MONITOR.
--- NOTE | 2017-07-15 12:55 | NUR ---
07/15/17 RD FOLLOW UP ASSESSMENT COMPLETED PLEASE REFER TO NUTRITION ASSESSMENT UNDER CARE ACTIVITY FOR ESTIMATED NUTRITIONAL NEEDS. 1. RECOMMEND ADDING NECTAR THICKENED LIQUIDS TO CURRENT PUREE DIET ORDER 2. CONTINUE DIET HEALTH SHAKES TID 3. ENCOURAGE INCREASED PO INTAKE TOLERATED 4. IF/WHEN PT CONSUMES >50% AVERAGE PO INTAKE CONSIDER ADDING CCHO 60 GM TO DIET ORDER. --CURRENT LIBERALIZATION OF DIET TO HELP INCREASE PT PO INTAKE. 5. RD TO FOLLOW UP WITHIN 3-5 DAYS; MODERATE RISK THERESA MARTINEZ RD Addendum: 07/16/17 at [address] D/T CHANGE IN PT STATUS RD TO CHANGE F/U FROM MODERATE RISK (3-5 DAYS) TO HIGH RISK (2-3 DAYS). PT PENDING ANOTHER SWALLOW EVAL D/T NOT BEING ABLE TO TOLERATE CURRENT DIET ORDER. PER MORNING BED HUDDLE DISCUSSION IF PT FAILS SWALLOW EVAL, POSSIBLE PEG TUBE PLACEMENT. THERESA MARTINEZ RD
--- NOTE | 2017-07-15 19:35 | NUR ---
REPORT GIVEN TO OPEN WINDER NURSE, PT IN STABLE CONDITION.
--- NOTE | 2017-07-15 19:36 | NUR ---
PATIENT REPORT RECEIVED FROM MORNING NURSE. PATIENT IS AWAKE AND ALERT. FAMILY MEMBERS ARE AT BEDSIDE. NO SIGNS AND SYMPTOMS OF DISTRESS NOTED, NO COMPLAINTS OF PAIN AT THIS TIME. IV SITE NOTED ON RIGHT FOREARM, ASYMPTOMATIC, INTACT, PATENT. IVF INFUSING WELL. BED IN LOWEST POSITION, SIDE RAILS UP AND CALL LIGHT WITHIN REACH. WILL CONTINUE TO MONITOR.
--- NOTE | 2017-07-15 21:00 | NUR ---
PATIENT REFUSED PO MED, ENALAPRIL. CHECKED BP, BP IS WITHIN NORMAL LIMITS. WILL CONTINUE TO MONITOR.
[2017-07-15] MEDS: LEVOFLOXACIN 250 MG/D5 PREMIX 50 ML IV SCH (21:20)
[2017-07-16] VITALS: BP 146/67
--- NOTE | 2017-07-16 | NUR ---
CHECKED ON PATIENT, PATIENT IS ASLEEP. NO SIGNS AND SYMPTOMS OF DISTRESS NOTED. BED IN LOWEST POSITION, SIDE RAILS UP AND CALL LIGHT WITHIN REACH.
[2017-07-16] MEDS: NACL 0.9% 1,000 ML IV SCH (01:53)
[2017-07-16 04:00] VITALS: BP 101/60
[2017-07-16] MEDS: CLINDAMYCIN 600 MG in DEXTROSE 5% 50 ML IV SCH ×3 (04:22→20:14)
[2017-07-16 05:47] LABS: BASOPHILS # (AUTO) 0.2 K/uL (0.00-0.22); BASOPHILS % (AUTO) 2.2 % (0.0-2.0); EOSINOPHILS # (AUTO) 0.1 K/uL (0-0.4); EOSINOPHILS % (AUTO) 1.6 % (0.0-4.0); HEMATOCRIT 36.7 % (36-48); HEMOGLOBIN 12.4 g/dL (12.0-16.0); LYMPHOCYTES # (AUTO) 1.5 K/uL (2.5-16.5); LYMPHOCYTES % (AUTO) 19.2 % (20.5-51.1); MEAN CORPUSCULAR HEMOGLOBIN 32 pg (27-31); MEAN CORPUSCULAR HGB CONC 34 g/dL (33-37); MEAN CORPUSCULAR VOLUME 93 fL (80-94); MONOCYTES # (AUTO) 0.3 K/uL (0.8-1.0); MONOCYTES % (AUTO) 4.2 % (1.7-9.3); NEUTROPHILS # (AUTO) 5.6 K/uL (1.8-7.7); NEUTROPHILS % (AUTO) 72.8 % (42.2-75.2); PLATELET COUNT (AUTO) 247 K/uL (140-450); RED BLOOD CELL COUNT(AUTO) 3.93 MIL/uL (4.20-5.40); RED CELL DISTRIBUTION WIDTH 12.2 % (11.6-13.7); WHITE BLOOD COUNT (AUTO) 7.7 K/uL (4.8-10.8)
[2017-07-16 06:17] LABS: ANION GAP 13.6 (8-16); CARBON DIOXIDE 27.1 mmol/L (21-32); CHLORIDE 103 mmol/L (98-107); CREATININE 1.4 mg/dL (0.6-1.3); GLUCOSE 252 mg/dL (74-106); POTASSIUM 3.7 mmol/L (3.5-5.1); SODIUM SERUM 140 mmol/L (136-145); UREA NITROGEN, BLOOD 19 mg/dL (7-18)
[2017-07-16] MEDS: BLOOD GLUCOSE MONITORING 1 DEV DEV FS SCH ×4 (06:36→21:00)
[2017-07-16] MEDS: INSULIN LISPRO SLIDING SCALE 100 UNITS/ML VIAL SUBQ PRN ×3 (06:37→16:40)
--- NOTE | 2017-07-16 07:08 | NUR ---
PATIENT REPORT GIVEN TO MORNING NURSE AT BEDSIDE. PATIENT IS IN STABLE CONDITION
--- NOTE | 2017-07-16 07:18 | NUR ---
RECEIVED ENDORSEMENT FROM DEVANG. PATIENT IS AWAKE. RESPIRATION IS UNLABOR, NO DISTRESS NOTED. SKIN DRY WARM TO THE TOUCH, COLOR WITHIN NORMAL LIMIT. CALL LIGHT WITHIN REACH. WILL CONTINUE TO MONITOR.
[2017-07-16 08:00] VITALS: BP 138/61
[2017-07-16] MEDS: metFORMIN 500 MG TAB PO SCH ×2 (08:00→17:00)
--- NOTE | 2017-07-16 08:00 | NUR ---
PATIENT IS DROWSY, AROUSABLE BY TOUCH. RESPIRATION IS EVEN, UNLABOR, LUNGS SOUND COARSE ON BILATERAL UPPER LOBES. CARDIAC: REGULAR RHYTHM WITH PACEMAKER. BOWEL SOUND ACTIVE ON 4 QUADRANTS. SKIN INTACT, DRY AND WARM. IV 22G ON RIGHT FOREARM WITH NS @ 50ML/HR, PATENT AND INTACT. NO DISTRESS IS NOTED. CALL LIGHT WITHIN REACH. WILL CONTINUE TO MONITOR
[2017-07-16] MEDS: ASPIRIN 81 MG TAB.CHEW PO SCH (09:00)
[2017-07-16] MEDS: ENALAPRIL 10 MG TAB PO SCH ×2 (09:00→21:00)
[2017-07-16] MEDS: ATORVASTATIN 20 MG TAB PO SCH (09:00)
[2017-07-16] MEDS: LACTOBACILLUS RHAMNOSUS GG 1 EACH CAP PO SCH (09:00)
[2017-07-16] MEDS: amLODIPine 5 MG TAB PO SCH (09:00)
--- NOTE | 2017-07-16 09:00 | NUR ---
PT AWAKE SITTING UP, FOLLOWS COMMANDS APPROPRIATELY, PT COUGHS AND GAGS AND DOES NOT SWALLOW WHEN BREAKFAST BEING FED, WILL HOLD PO FOR NOW, DR OMNGE MADE AWARE. SWALLOW RE-EVALUATION PENDING. PT REMAINS ON OFFICE DIRECTOR, NO C/O PAIN, WILL CONTINUE TO MONITOR.
[2017-07-16] MEDS: FUROSEMIDE 20 MG/2 ML VIAL IVP SCH (09:22)
[2017-07-16] MEDS: PANTOPRAZOLE 40 MG INJ VIAL IVP SCH (09:22)
--- NOTE | 2017-07-16 10:00 | NUR ---
PATIENT IS AWAKE. PACEMAKER'S ROUTINE FUNCTION CHECK IS BEING DONE. FAMILY IS AT BEDSIDE. CALL LIGHT WITHIN REACH. WILL CONTINUE TO MONITOR
--- NOTE | 2017-07-16 10:01 | NUR ---
CM NOTE CONCURRENT REVIEW FAXED TO [facility] / [phone], ATTN: SMILEY #[phone] [id number]
[2017-07-16] MEDS ORDERED: INSULIN DETEMIR 100 UNITS/ML 10 ML VIAL SUBQ SCH (10:15)
--- NOTE | 2017-07-16 11:05 | NUR ---
FAMILY AT BEDSIDE FEEDING PT THICKENED APPLE JUICE, FAMILY EDUCATED ON ASPIRATION PRECAUTION AND PENDING SWALLOW EVAL, FAMILY INSIST THAT PT NEEDS FEEDING TUBE/PEG TUBE, DR MONGE CALLED TO BEDSIDE REQUESTED BY FAMILY TO DISCUSS FUTURE PLAN OF CARE.
[2017-07-16 12:00] VITALS: BP 137/66
--- NOTE | 2017-07-16 12:36 | NUR ---
PATIENT IS ASLEEP COMFORTABLY, NO DISTRESS NOTED, NO COMPLAIN OF PAIN. CALL LIGHT WITHIN REACH. WILL CONTINUE TO MONITOR
[2017-07-16 16:00] VITALS: BP 160/66
--- NOTE | 2017-07-16 16:00 | NUR ---
PATIENT IS AWAKE, ALERT. VITAL SIGN WAS TAKEN. NO DISTRESS WAS NOTED. CALL LIGHT WITHIN REACH. WILL CONTINUE TO MONITOR
--- NOTE | 2017-07-16 17:03 | NUR ---
SWALLOW EVAL IS PENDING. PO METFORMIN HELD
--- NOTE | 2017-07-16 17:41 | NUR ---
DR MONGE AT BEDSIDE, PLAN OF CARE DISCUSSED WITH FAMILY, AWAITING SWALLOW EVAL, PT AWAKE LOOKING AROUND, APPEARS IN NAD, PT REMAINS ON APPRAISER LAND, WILL CONTINUE TO MONITOR.
--- NOTE | 2017-07-16 18:22 | NUR ---
PATIENT IS AWAKE, ALERT. FAMILY MEMBER IS AT BEDSIDE. SWALLOW EVAL PENDING. CALL LIGHT WITHIN REACH, WILL CONTINUE TO MONITOR
--- NOTE | 2017-07-16 19:00 | NUR ---
SPEECH THERAPIST CAME TO DO SWALLOW EVALUATION. PATIENT FAILED THE EVAL PER THERAPIST. THERAPIST SPOKE WITH THE RESIDENT ABOUT PUTTING PATIENT ON NPO AT THIS TIME.
--- NOTE | 2017-07-16 19:26 | NUR ---
* ST RE-EVAL NOTE * Pt seen at bedside. Pt awake but appearing to be confused at this time, oriented x1. Bedside dysphagia and oral mechanism re-evaluations completed. See evaluation report for further details. Pt tolerating 2/4 alternating PO trials of puree apple sauce 3-5 CCs at a time via a spoon w/o s/s of aspiration, but exhibiting coughing immediately after PO intake of last 2 boluses. Pt also tolerating 2/4 alternating PO trials of honey-thick apple juice 3-5 CCs at a time via a spoon, w/o s/s of aspiration, but also demonstrating coughing w/gargly voicing after PO intake of HTL. It is thus recommended pt be placed as NPO with an RD referral for artificial means of nutrition at this time 2/2 to moderate to severe oropharyngeal dysphagia potentially d/t change in pt's mental status. It is also recommended pt receive skilled FRUIT PICKER MACHINE OPERATOR services to further assess least restrictive PO diet consistency if appropriate, with pt and caregivers/nsg verbalizing understanding and agreement w/clinician's recommendations. ST to ff 1-2x in next 3-4 days. Pt and caregivers/nsg education completed regarding results of evaluation; benefits of abiding by NPO status and recommendation for artificial means of nutrition; benefits of receiving skilled FRUIT PICKER MACHINE OPERATOR services; POC; and prognosis for improvement; with pt and caregivers/nsg verbalizing understanding and agreement w/clinician's recommendations. Recommend: - NPO - RD eval for artificial means of nutrition via NG, PEG or TPN 2/2 to pt at high risk for aspiration and choking d/t moderate to severe oropharyngeal dysphagia - Oral hygiene care daily ST to follow up 1-2x in next 3-4 days. G8996 CL G8997 CK NOMS Level 4 Time In/Out 18:50 - 19:20
--- NOTE | 2017-07-16 19:26 | NUR ---
REPORT GIVEN TO PLATE HANGER NURSE. PATIENT IS STABLE
--- NOTE | 2017-07-16 19:27 | NUR ---
RECEIVED PT FROM DAY NURSE, PT IN STABLE CONDITION. PT ALOC. PT IS AWAKE AND ALERT. PT IS ON 2L O2 VIA NC, SKIN IS INTACT. IV TO R FA 22G INTACT AND INFUSING WELL. RESPIRATIONS ARE EVEN AND UNLABORED. PT HAS RT LOWER EXT SPLINT FOR RT FIBULAR FX. BOWEL SOUNDS ARE PRESENT. PT HAD SWALLOW EVAL AND DID NOT PASS. PT WILL BE KEPT NPO. INITIAL ASSESSMENT COMPLETED. PLAN OF CARE DISCUSSED WITH PT AT BEDSIDE, REINFORCEMENT NEEDED. ALL SAFETY PRECAUTIONS MET, CALL LIGHT WITHIN REACH, WILL CONTINUE TO MONITOR.
[2017-07-16 20:00] VITALS: BP 170/70
[2017-07-16] MEDS: hydrALAZINE 20 MG/ML VIAL IVP PRN (20:50)
[2017-07-16] MEDS: INSULIN DETEMIR 100 UNITS/ML 10 ML VIAL SUBQ SCH (20:50)
--- NOTE | 2017-07-16 20:52 | NUR ---
SPOKE TO DR. BUCHANAN REGARDING PTS B/P 170/70. ELANAPRIL CANNOT BE GIVEN AT THIS TIME, PT IS NPO AND DID NOT PASS SWALLOW EVAL. DR. BUCHANAN SAID TO ADMINISTER HYDRALAZINE IVP. ALSO ASKED REGARDING INSULIN BECAUSE PT IS NPO. PT HAS SCHEDULADED LEVEMIR ORDERED AND HUMALOG FOR BS 186. DR. BUCHANAN SAID TO ADMINISTER LEVEMIR FOR NOW AND HOLD HUMALOG. WILL CARRY OUT NEW ORDERS
[2017-07-16] MEDS: DEXT 5% / NACL 0.45% 1,000 ML IV SCH (21:06)
[2017-07-16] MEDS: LEVOFLOXACIN 250 MG/D5 PREMIX 50 ML IV SCH (21:41)
[2017-07-17] VITALS: BP 138/75
--- NOTE | 2017-07-17 | NUR ---
PT RESTING IN BED, CLEAN AND DRY. NO S/S OF DISTRESS NOTED. WILL CONTINUE TO MONITOR
[2017-07-17] MEDS ORDERED: HALOPERIDOL IM 5 MG/ML VIAL IM ONE (02:00)
--- NOTE | 2017-07-17 02:07 | NUR ---
DR. BUCHANAN IN TO SEE PT. WILL CARRY OUT NEW ORDERS
--- NOTE | 2017-07-17 02:07 | NUR ---
PAGED DR. BUCHANAN PT IS VERY RESTLESS, TALKING TO HERSELF, AND NOT SLEEPING. PT IS PULLING ON IV LINE.
[2017-07-17 04:00] VITALS: BP 156/57
[2017-07-17] MEDS: CLINDAMYCIN 600 MG in DEXTROSE 5% 50 ML IV SCH ×3 (05:18→21:06)
[2017-07-17] MEDS: INSULIN LISPRO SLIDING SCALE 100 UNITS/ML VIAL SUBQ PRN ×3 (06:01→21:16)
[2017-07-17] MEDS: BLOOD GLUCOSE MONITORING 1 DEV DEV FS SCH ×4 (06:39→21:06)
[2017-07-17 06:55] LABS: BASOPHILS # (AUTO) 0.2 K/uL (0.00-0.22); BASOPHILS % (AUTO) 3.5 % (0.0-2.0); EOSINOPHILS # (AUTO) 0.2 K/uL (0-0.4); EOSINOPHILS % (AUTO) 3.3 % (0.0-4.0); HEMATOCRIT 37.7 % (36-48); LYMPHOCYTES # (AUTO) 1.5 K/uL (2.5-16.5); LYMPHOCYTES % (AUTO) 25.2 % (20.5-51.1); MEAN CORPUSCULAR HEMOGLOBIN 32 pg (27-31); MEAN CORPUSCULAR HGB CONC 35 g/dL (33-37); MEAN CORPUSCULAR VOLUME 92 fL (80-94); MONOCYTES # (AUTO) 0.4 K/uL (0.8-1.0); MONOCYTES % (AUTO) 6.4 % (1.7-9.3); NEUTROPHILS # (AUTO) 3.7 K/uL (1.8-7.7); NEUTROPHILS % (AUTO) 61.6 % (42.2-75.2); PLATELET COUNT (AUTO) 201 K/uL (140-450); RED BLOOD CELL COUNT(AUTO) 4.09 MIL/uL (4.20-5.40)
[2017-07-17 07:19] LABS: ANION GAP 7.2 (8-16); CHLORIDE 104 mmol/L (98-107); GLUCOSE 215 mg/dL (74-106); POTASSIUM 3.2 mmol/L (3.5-5.1); SODIUM SERUM 139 mmol/L (136-145); UREA NITROGEN, BLOOD 15 mg/dL (7-18)
--- NOTE | 2017-07-17 07:19 | NUR ---
ENDORSED PLAN OF CARE TO VERA RN AT THE BEDSIDE FOR CONTINUATION OF CARE. PT REMAINS STABLE. NO S/S OF DISTRESS NOTED.
--- NOTE | 2017-07-17 07:20 | NUR ---
RECEIVED REPORT FROM THE UI SOFTWARE ENGINEER NURSE AT BEDSIDE FOR CONTINUITY OF CARE. PT IS SOUND ASLEEP. NO SIGNS OF DISTRESS. V/S WITHIN NORMAL LIMITS EXCEPT OF ELEVATED BP. SKIN IS INTACT. IV ON R FA 2G D5 1/2 NS INFUSING AT 60ML/HR. MORNING LABS UNREMARKABLE, EXCEPT K AT 3.2. WILL NOTIFY . PLAN FOR TODAY: NPO. GET CONSENT FOR JPEG PLACEMENT FROM FAMILY MEMBERS. WILL CONTINUE TO MONITOR PT.
[2017-07-17 08:00] VITALS: BP 161/73
[2017-07-17] MEDS: metFORMIN 500 MG TAB PO SCH ×2 (08:00→16:49)
[2017-07-17] MEDS: amLODIPine 5 MG TAB PO SCH (09:00)
[2017-07-17] MEDS: ASPIRIN 81 MG TAB.CHEW PO SCH (09:00)
[2017-07-17] MEDS: LACTOBACILLUS RHAMNOSUS GG 1 EACH CAP PO SCH (09:00)
[2017-07-17] MEDS: ATORVASTATIN 20 MG TAB PO SCH (09:00)
[2017-07-17] MEDS: ENALAPRIL 10 MG TAB PO SCH ×2 (09:00→21:00)
[2017-07-17] MEDS: PANTOPRAZOLE 40 MG INJ VIAL IVP SCH (09:49)
[2017-07-17] MEDS: FUROSEMIDE 20 MG/2 ML VIAL IVP SCH (09:51)
--- NOTE | 2017-07-17 09:56 | NUR ---
ADMINISTERED MORNING MEDS. HELD ALL PO MEDS DIRECTED BY MD. GAVE IVP PROTONIX AND LASIX. PT TOLERATED WELL. WILL CONTINUE TO MONITOR.
[2017-07-17] MEDS ORDERED: POTASSIUM CHLORIDE 40 MEQ, LIDOCAINE 1% 25 MG in NACL 0.9% 250 ML IV SCH (10:00)
--- NOTE | 2017-07-17 10:10 | NUR ---
SPOKE TO SON AND RECEIVED VERBAL CONSENT FOR PEG PLACEMENT. 2ND NURSE, HARINI, VERIFIED VERBAL CONSENT. CONSENT IN CHART.
--- NOTE | 2017-07-17 10:56 | NUR ---
ADMINISTERED K GRIFFIN Lennon/ MAYA. PT TOLERATING WELL. PT IS WIDE AWAKE. ANSWERING SIMPLE QUESTIONS APPROPRIATELY. DENIES PAIN. WILL CONTINUE TO MONITOR PT.
--- NOTE | 2017-07-17 11:18 | NUR ---
FAMILY MEMBERS VISITING WITH PT.
[2017-07-17 12:03] VITALS: BP 147/62
--- NOTE | 2017-07-17 12:58 | NUR ---
07/17/17 RD FOLLOW UP COMPLETED REFER TO NUTRITION PROGRESS NOTE UNDER CARE ACTIVITY FOR ESTIMATED NEEDS. RD RECOMMENDATIONS: 1.WHEN MEDICALLY ABLE INITIATE TF WITH DIABETISOURE AC AT 15ML ADVANCE BY 20ML Q4H TO GOAL RATE 55ML/HR + 85ML FREE WATER FLUSH Q6H TO PROVIDE: 1320ML, 1584KCALS (25KCAL/KG), 79G PROTEIN (1.25G/KG), 1590ML FREE WATER - Discussed with RN and left message for Doctor. 2. CONTINUE TO CHECK AND REPLETE LYTES PRN. 3. RD TO FOLLOW UP WITHIN 2-3 DAYS; HIGH RISK BELGICA SOLIS RD Addendum: 07/17/17 at [address] DISCUSSED TF RECS AND OBTAINING CURRENT PHOS AND Mg LEVELS WITH MD.
--- NOTE | 2017-07-17 13:00 | NUR ---
DR Norm JUDD WAS HERE, SAW PT, SPOKE TO FAMILY. WILL DO PROCEDURE TOMORROW AM.
[2017-07-17 15:21] LABS: MAGNESIUM 1.2 mg/dL (1.8-2.4)
[2017-07-17 16:00] VITALS: BP_SYST 186
[2017-07-17] MEDS ORDERED: MAG SULF 2000 MG/WATER PREMIX 50 ML IV SCH (16:00)
--- NOTE | 2017-07-17 16:50 | NUR ---
HYDRALAZINE GIVEN D/T PT'S HIGH BP 186/74. INSULIN GIVEN 2U FOR 188. PT TOLERATED WELL. PT VISITING WITH MORE VISITORS. PT IS ALERT AND HAVING CONVERSATION. WILL CONTINUE TO MONITOR PT.
[2017-07-17] MEDS: hydrALAZINE 20 MG/ML VIAL IVP PRN (16:56)
--- NOTE | 2017-07-17 19:15 | NUR ---
ENDORSED PT TO THE INDUSTRIAL PHARMACIST NURSE AT BEDSIDE FOR CONTINUITY OF CARE. PT IS IN STABLE CONDITION. ALL FAMILY MEMBERS ARE GONE AND PT IS RESTING COMFORTABLY. PT IN STABLE CONDITION.
--- NOTE | 2017-07-17 19:16 | NUR ---
RECEIVED REPORT FROM DAY SHIFT RN, PT IS A/MARLENI1, ON ROOM AIR, [place] SPEAKING. PT LETHARGIC. INTACT SKIN, WITH 22G IV TO RIGHT FOREARM INFUSING D5 1/2NS@60ML/HR. PT IS ON BEDREST, UNABLE TO AMBULATE. SAFETY PRECAUTIONS IN PLACE. UPDATED BOARD. DISCUSSED PLAN OF CARE WITH PT IN [place]. VITAL SIGNS WITHIN NORMAL LIMITS. PT IN STABLE CONDITION, NO SIGNS OF DISTRESS NOTED. BED IN LOW POSITION, CALL LIGHT WITHIN REACH. WILL CONTINUE TO MONITOR.
[2017-07-17 20:03] VITALS: BP 109/61
[2017-07-17] MEDS: INSULIN DETEMIR 100 UNITS/ML 10 ML VIAL SUBQ SCH (21:07)
--- NOTE | 2017-07-17 21:10 | NUR ---
ADMINISTERED SCHEDULED IV MEDICATIONS AND INSULIN, HELD PO MEDICATIONS SINCE PT IS NPO. PT TOLERATED WELL. PT IN STABLE CONDITION, NO SIGNS OF DISTRESS NOTED. BED IN LOW POSITION, CALL LIGHT WITHIN REACH. WILL CONTINUE TO MONITOR.
[2017-07-17] MEDS: LEVOFLOXACIN 250 MG/D5 PREMIX 50 ML IV SCH (21:17)
[2017-07-18] VITALS: BP 139/67
--- NOTE | 2017-07-18 00:30 | NUR ---
REPOSITIONED AND CLEANED PT WITH HELP FROM FILE SYSTEM INSTALLER, PT TOLERATED WELL. PT IN STABLE CONDITION, NO SIGNS OF DISTRESS NOTED. BED IN LOW POSITION, CALL LIGHT WITHIN REACH. WILL CONTINUE TO MONITOR.
--- NOTE | 2017-07-18 03:45 | NUR ---
REPOSITIONED AND CLEANED PT WITH HELP FROM HARVESTER OPERATOR, PT TOLERATED WELL. PT IN STABLE CONDITION, NO SIGNS OF DISTRESS NOTED. BED IN LOW POSITION, CALL LIGHT WITHIN REACH. WILL CONTINUE TO MONITOR.
[2017-07-18 04:00] VITALS: BP 148/67
[2017-07-18] MEDS: CLINDAMYCIN 600 MG in DEXTROSE 5% 50 ML IV SCH ×3 (05:51→20:20)
[2017-07-18] MEDS: INSULIN LISPRO SLIDING SCALE 100 UNITS/ML VIAL SUBQ PRN ×4 (06:50→20:32)
[2017-07-18] MEDS: BLOOD GLUCOSE MONITORING 1 DEV DEV FS SCH ×4 (06:50→20:20)
[2017-07-18 06:58] LABS: BASOPHILS # (AUTO) 0.2 K/uL (0.00-0.22); BASOPHILS % (AUTO) 2.1 % (0.0-2.0); EOSINOPHILS # (AUTO) 0.2 K/uL (0-0.4); EOSINOPHILS % (AUTO) 3.1 % (0.0-4.0); HEMATOCRIT 37.1 % (36-48); HEMOGLOBIN 12.9 g/dL (12.0-16.0); LYMPHOCYTES # (AUTO) 2.1 K/uL (2.5-16.5); LYMPHOCYTES % (AUTO) 26.6 % (20.5-51.1); MEAN CORPUSCULAR HEMOGLOBIN 31 pg (27-31); MEAN CORPUSCULAR HGB CONC 35 g/dL (33-37); MEAN CORPUSCULAR VOLUME 91 fL (80-94); MONOCYTES # (AUTO) 0.5 K/uL (0.8-1.0); MONOCYTES % (AUTO) 5.6 % (1.7-9.3); NEUTROPHILS % (AUTO) 62.6 % (42.2-75.2); PLATELET COUNT (AUTO) 203 K/uL (140-450); RED BLOOD CELL COUNT(AUTO) 4.09 MIL/uL (4.20-5.40); RED CELL DISTRIBUTION WIDTH 11.9 % (11.6-13.7)
--- NOTE | 2017-07-18 07:15 | NUR ---
ENDORSED PT TO DAY SHIFT RN FOR CONTINUITY OF CARE. PT IN STABLE CONDITION WITH NO SIGNS OF DISTRESS.
[2017-07-18 07:54] LABS: ANION GAP 8.2 (8-16); CARBON DIOXIDE 30.4 mmol/L (21-32); CHLORIDE 105 mmol/L (98-107); CREATININE 1.1 mg/dL (0.6-1.3); GLUCOSE 167 mg/dL (74-106); POTASSIUM 3.6 mmol/L (3.5-5.1); SODIUM SERUM 140 mmol/L (136-145); UREA NITROGEN, BLOOD 15 mg/dL (7-18)
[2017-07-18 07:59] LABS: MAGNESIUM 1.7 mg/dL (1.8-2.4); PHOSPHORUS 3.5 mg/dL (2.5-4.9)
[2017-07-18 08:00] VITALS: BP 126/65
[2017-07-18] MEDS: metFORMIN 500 MG TAB PO SCH ×2 (08:00→17:00)
[2017-07-18] MEDS: PANTOPRAZOLE 40 MG INJ VIAL IVP SCH (08:07)
[2017-07-18] MEDS: hydrALAZINE 20 MG/ML VIAL IVP PRN (08:07)
[2017-07-18] MEDS: FUROSEMIDE 20 MG/2 ML VIAL IVP SCH (08:08)
[2017-07-18] MEDS ORDERED: fentaNYL 0.05 MG/ML VIAL ONE (08:50)
[2017-07-18] MEDS ORDERED: MIDAZOLAM 2 MG/2 ML VIAL ONE (08:51)
[2017-07-18] MEDS: LACTOBACILLUS RHAMNOSUS GG 1 EACH CAP PO SCH (09:00)
[2017-07-18] MEDS: amLODIPine 5 MG TAB PO SCH (09:00)
[2017-07-18] MEDS: ENALAPRIL 10 MG TAB PO SCH ×2 (09:00→20:20)
[2017-07-18] MEDS: ATORVASTATIN 20 MG TAB PO SCH (09:00)
[2017-07-18] MEDS: ASPIRIN 81 MG TAB.CHEW PO SCH (09:00)
[2017-07-18] MEDS ORDERED: MIDAZOLAM 2 MG/2 ML VIAL IVP ONE (09:45)
[2017-07-18] MEDS ORDERED: fentaNYL 0.05 MG/ML VIAL IVP ONE (09:45)
--- NOTE | 2017-07-18 11:32 | NUR ---
CALLED [facility] AND SPOKE TO DREW JENNINGS, SHE SAID PATIENT IS ON BEDHOLD AND IF DC TODAY SHE WILL GO TO ROOM 5-A.
[2017-07-18 12:00] VITALS: BP 135/61
[2017-07-18 16:00] VITALS: BP 140/63
--- NOTE | 2017-07-18 16:02 | NUR ---
TUBE FEEDING STARTED AT 15ML/HR. WILL CONTINUE TO MONITOR.
--- NOTE | 2017-07-18 16:34 | NUR ---
CALLED [facility] FOR TRANSPORT AND SPOKE TO ASHWIN, PATIENT PUT ON A WILL CALL.
[2017-07-18] MEDS ORDERED: MAGNESIUM OXIDE 400 MG TAB GT SCH (17:00)
[2017-07-18] MEDS ORDERED: LEVO250T2 GT (17:03)
[2017-07-18] MEDS ORDERED: VAS10 GT (17:03)
[2017-07-18] MEDS ORDERED: FURO-572 GT (17:03)
[2017-07-18] MEDS ORDERED: PANT40EC GT (17:03)
[2017-07-18] MEDS ORDERED: LEVEMIR SUBQ (17:03)
[2017-07-18] MEDS ORDERED: DOCU-299 GT (17:03)
[2017-07-18] MEDS ORDERED: LACT10CA GT (17:03)
[2017-07-18] MEDS ORDERED: ATOR20TA40 GT (17:03)
[2017-07-18] MEDS ORDERED: MAGN400T7 GT (17:03)
[2017-07-18] MEDS ORDERED: GLU500 GT (17:03)
[2017-07-18] MEDS ORDERED: CLIN300C2 GT (17:03)
[2017-07-18] MEDS ORDERED: AMLO5TAB4 GT (17:03)
[2017-07-18] MEDS ORDERED: APR20I IVP (17:07)
[2017-07-18] MEDS ORDERED: HUMSLIDE SUBQ (17:07)
--- NOTE | 2017-07-18 17:35 | NUR ---
CALLED [facility] AND GAVE REPORT TO MELLISSA.
--- NOTE | 2017-07-18 19:22 | NUR ---
ENDORSED PATIENT TO RAILROAD COOK RN FOR CONTINUITY OF CARE. PATIENT IN STABLE CONDITION.
--- NOTE | 2017-07-18 19:23 | NUR ---
RECEIVED REPORT FROM DAY SHIFT RN, PT IS A/OX1, ON ROOM AIR, [place] SPEAKING. PT IS AWAKE WITH FAMILY AT BEDSIDE. INTACT SKIN, WITH 22G IV TO RIGHT FOREARM INFUSING D5 1/2NS@60ML/HR. GTUBE IN PLACE INFUSING AT 15ML/HR. CHECKED RESIDUAL AND IT WAS 40ML, POLYMERIZATION OVEN OPERATOR SAID OK TO INCREASE RATE TO 35 PER ORDERS, CHANGED RATE TO 35ML/HR. PT IS ON BEDREST, UNABLE TO AMBULATE. SAFETY PRECAUTIONS IN PLACE. UPDATED BOARD. DISCUSSED PLAN OF CARE WITH PT IN [place]. VITAL SIGNS WITHIN NORMAL LIMITS. PT WILL BE TRANSFERRED TO [facility]. PT IN STABLE CONDITION, NO SIGNS OF DISTRESS NOTED. BED IN LOW POSITION, CALL LIGHT WITHIN REACH. WILL CONTINUE TO MONITOR.
[2017-07-18 19:59] VITALS: BP 144/73
[2017-07-18] MEDS: LEVOFLOXACIN 250 MG/D5 PREMIX 50 ML IV SCH (20:20)
[2017-07-18] MEDS: INSULIN DETEMIR 100 UNITS/ML 10 ML VIAL SUBQ SCH (20:21)
--- NOTE | 2017-07-18 20:30 | NUR ---
ADMINISTERED SCHEDULED MEDICATIONS AND NORCO FOR PAIN. PT TOLERATED WELL. RESIDUAL AT 35ML. FLUSHED GTUBE AFTER ADMINISTERING MEDICATIONS AND RESTARTED TUBE FEEDINGS AT 35ML/HL. PT IN STABLE CONDITION, NO SIGNS OF DISTRESS NOTED. BED IN LOW POSITION, CALL LIGHT WITHIN REACH. WILL CONTINUE TO MONITOR.
--- NOTE | 2017-07-18 22:01 | NUR ---
CHECKED RESIDUAL AND IT WAS 60ML. FEEDING WAS INCREASED TO 55ML/HR. FLUSHED TUBE AND CONTINUED TUBE FEEDING. DISCHARGE PAPERWORK WAS PRINTED AND SIGNED BY 2 RN'S BECAUSE PT UNABLE TO SIGN. PT IN STABLE CONDITION, NO SIGNS OF DISTRESS NOTED. BED IN LOW POSITION, CALL LIGHT WITHIN REACH. WILL CONTINUE TO MONITOR.
--- NOTE | 2017-07-18 23:25 | NUR ---
CHECKED RESIDUAL AND IT WAS 110ML. CERTIFIED CREDIT COUNSELOR SPOKE TO DR BUCHANAN ABOUT RESIDUAL INCREASING FEEDING RATE INCREASES. GAVE ORDERS FOR PT TO STAY TO BE MONITORED.
--- NOTE | 2017-07-18 23:30 | NUR ---
CALLED [facility] AND SPOKE TO NICHOLAS, MADE AWARE THAT DISCHARGE HAS BEEN HOLD FOR NOW.
[2017-07-18] MEDS: DEXT 5% / NACL 0.45% 1,000 ML IV SCH (23:31)
[2017-07-19] VITALS: BP 135/72
--- NOTE | 2017-07-19 00:15 | NUR ---
CHECKED RESIDUAL AND IT WAS 155ML. STOPPED TUBE FEEDING. WILL MONITOR PT AND CONTINUE TUBE FEEDINGS IN 1-2HRS.
--- NOTE | 2017-07-19 02:20 | NUR ---
RESIDUAL NOW 10ML. PROCEEDED TO START TUBE FEEDINGS BACK UP AGAIN AT 55ML/HR. PT TOLERATING WELL. WILL CONTINUE TO MONITOR CLOSELY.
[2017-07-19 04:00] VITALS: BP 129/58
--- NOTE | 2017-07-19 04:00 | NUR ---
CHECKED RESIDUAL AND IT IS 50ML AT THIS TIME. TUBE FEEDING CONTINUED. WILL CONTINUE TO MONITOR CLOSELY.
[2017-07-19] MEDS: CLINDAMYCIN 600 MG in DEXTROSE 5% 50 ML IV SCH (04:48)
--- NOTE | 2017-07-19 05:32 | NUR ---
RESIDUAL NOW 10ML. PROCEEDED TO START TUBE FEEDINGS BACK UP AGAIN AT 55ML/HR. PT TOLERATING WELL. WILL CONTINUE TO MONITOR CLOSELY. Addendum: 07/19/17 at 0534 by Liz Chan RN ERROR MADE PLEASE DISREGARD
--- NOTE | 2017-07-19 05:42 | NUR ---
RESIDUAL IS 30ML AT THIS TIME. PT IN STABLE CONDITION, NO SIGNS OF DISTRESS NOTED. BED IN LOW POSITION, CALLL LIGHT WITHIN REACH. WILL CONTINUE TO MONITOR CLOSELY.
[2017-07-19 05:59] LABS: BASOPHILS # (AUTO) 0.2 K/uL (0.00-0.22); BASOPHILS % (AUTO) 2.9 % (0.0-2.0); EOSINOPHILS # (AUTO) 0.3 K/uL (0-0.4); EOSINOPHILS % (AUTO) 3.8 % (0.0-4.0); HEMATOCRIT 36.2 % (36-48); HEMOGLOBIN 12.6 g/dL (12.0-16.0); LYMPHOCYTES # (AUTO) 1.9 K/uL (2.5-16.5); LYMPHOCYTES % (AUTO) 22.4 % (20.5-51.1); MEAN CORPUSCULAR HEMOGLOBIN 32 pg (27-31); MEAN CORPUSCULAR HGB CONC 35 g/dL (33-37); MEAN CORPUSCULAR VOLUME 92 fL (80-94); MONOCYTES # (AUTO) 0.6 K/uL (0.8-1.0); MONOCYTES % (AUTO) 6.9 % (1.7-9.3); NEUTROPHILS # (AUTO) 5.3 K/uL (1.8-7.7); PLATELET COUNT (AUTO) 206 K/uL (140-450); RED BLOOD CELL COUNT(AUTO) 3.94 MIL/uL (4.20-5.40); RED CELL DISTRIBUTION WIDTH 11.7 % (11.6-13.7); WHITE BLOOD COUNT (AUTO) 8.3 K/uL (4.8-10.8)
[2017-07-19 06:16] LABS: ANION GAP 8.9 (8-16); CARBON DIOXIDE 30.4 mmol/L (21-32); CHLORIDE 103 mmol/L (98-107); CREATININE 1.1 mg/dL (0.6-1.3); GLUCOSE 162 mg/dL (74-106); POTASSIUM 3.3 mmol/L (3.5-5.1); SODIUM SERUM 139 mmol/L (136-145); UREA NITROGEN, BLOOD 14 mg/dL (7-18)
[2017-07-19 06:20] LABS: MAGNESIUM 1.5 mg/dL (1.8-2.4); PHOSPHORUS 3.6 mg/dL (2.5-4.9)
[2017-07-19] MEDS: BLOOD GLUCOSE MONITORING 1 DEV DEV FS SCH (06:32)
[2017-07-19] MEDS: INSULIN LISPRO SLIDING SCALE 100 UNITS/ML VIAL SUBQ PRN (06:32)
[2017-07-19] MEDS ORDERED: MAG SULF 2000 MG/WATER PREMIX 50 ML IV ONE (06:55)
[2017-07-19] MEDS ORDERED: POTASSIUM CHLORIDE 20% 40 MEQ/15 ML UDC GT SCH (06:55)
--- NOTE | 2017-07-19 07:00 | NUR ---
ENDORESEMENT RECEIVED FROM TRISHA. PATIENT WAS ASLEEP. RESPIRATION IS EVEN, UNLABOR. SKIN WARM AND DRY. NO DISTRESS WERE NOTED. CALL LIGHT WITHIN REACH. WILL CONTINUE TO MONITOR
--- NOTE | 2017-07-19 07:22 | NUR ---
CM NOTE RETRIEVED VOICEMAIL MESSAGE FROM MY FAMILY JACKSON SMILEY PH# [phone] DATED 07/16/17 TIME 14:48: PER JACKSON REIS, FOR [facility] AUTH# [id number], FOR [facility] AUTH# [id number].
--- NOTE | 2017-07-19 07:33 | NUR ---
ENDORSED PT TO DAY SHIFT RN FOR CONTINUITY OF CARE. PT IN STABLE CONDITION.
[2017-07-19 08:00] VITALS: BP 162/75
--- NOTE | 2017-07-19 08:00 | NUR ---
PATIENT IS AWAKE, ALERT, ORIENTED TO PERSON. EYES OPEN SPONTANEOUSLY. PUPILS ARE SLUGGISH, UNEQUAL. LUNGS SOUND CLEAR THROUGHOUT. CARDIAC WITH REGULAR, PACED RHYTHM. BOWEL SOUND ACTIVE 4 QUADRANTS. G TUBE PLACEMENT WAS CHECKED WITH RESIDUAL 135 ML. CONTINUOUS FEEDING AT 55 ML/HR. IV 22G ON RIGHT FOREARM WITH D5 1/2 NS AT 60ML/HR.. IV INTACT, PATENT. SKIN INTACT DRY AND WARM TO THE TOUCH. PLAN OF CARE REVIEWED. CALL LIGHT WITHIN REACH. PLAN TO TRANSFER PATIENT TO [facility] LATER TODAY. WILL CONTINUE TO MONITOR
[2017-07-19] MEDS: ATORVASTATIN 20 MG TAB PO SCH (08:46)
[2017-07-19] MEDS: PANTOPRAZOLE 40 MG INJ VIAL IVP SCH (08:46)
[2017-07-19] MEDS: ENALAPRIL 10 MG TAB PO SCH (08:46)
[2017-07-19] MEDS: metFORMIN 500 MG TAB PO SCH (08:47)
[2017-07-19] MEDS: ASPIRIN 81 MG TAB.CHEW PO SCH (08:47)
[2017-07-19] MEDS: LACTOBACILLUS RHAMNOSUS GG 1 EACH CAP PO SCH (08:47)
[2017-07-19] MEDS: amLODIPine 5 MG TAB PO SCH (08:48)
[2017-07-19] MEDS: FUROSEMIDE 20 MG/2 ML VIAL IVP SCH (08:48)
--- NOTE | 2017-07-19 09:21 | NUR ---
OFF SUPPLEMENTAL OXYGEN AT THIS TIME SATURATION 91% PATIENT ASSESSMENT DONE REVIEWED CXR DATED 07/15/2017 HHN PRN THERAPY GIVEN AT THIS TIME POST THERAPY PLACED BACK ON SUPPLEMENTAL OXYGEN AT 2 LPM VIA NC
--- NOTE | 2017-07-19 09:30 | NUR ---
PATIENT'S SON IS AT BEDSIDE, MADE AWARE OF HER TRANSFER TO [facility]
--- NOTE | 2017-07-19 10:27 | NUR ---
REPORT WAS GIVEN TO THAI HARRINGTON AT [facility]. PATIENT IS BEING PREPARED TO TRANSFERRED
--- NOTE | 2017-07-19 11:35 | NUR ---
PATIENT WAS TRANSFERRED TO THE [facility] AT 1135 BY THE EMT. VS WAS TAKEN. PATIENT IS STABLE, NO DISTRESS NOTED. IV D/PABLITO WITH CATHETER TIP INTACT, BLEEDING CONTROLLED. G TUBE FEEDING WAS STOPPED. PATIENT IS BEING TRANSFERRED TO [facility] AT THIS TIME. PATIENT'S BELONGINGS AND MEDICAL RECORD WERE GIVEN TO EMT.
--- NOTE | 2017-07-19 12:11 | NUR ---
PIPING BLOCKER Discharge Summary Report Pt was provided with bedside swallow evaluation on 07/13/2017 with recommendations for pureed textures, nectar-thick liquids, 100% feeding assistance. Pt was provided with bedside swallow re-evaluation on 07/16/2017 with recommendations for NPO, consider alternative method(s) of nutrition/hydration/medication vs comfort measures, oral cares, dysphagia therapy. Pt was discharged back to [facility] ([place] [facility]) on 07/19/2017. G-codes: [id number] [id number] [facility] NOMS level 2.
--- NOTE | 2017-07-19 15:07 | NUR ---
CM NOTE DISCHARGE SUMMARY FAXED TO [facility] / [phone], ATTN: SMILEY #[phone] [phone]
== END 2017-07-19 11:35 | DRG 177 ==
LOC: MED 19:20 → MTU 21:40
PROVIDERS: ADMIT Family Medicine; ATTEND Family Medicine
PROC: 2W3QX1Z Immobilization of Right Lower Leg using Splint (ICD-10-PCS; principal; 2017-07-13)
PROC: 0DH63UZ Insertion of Feeding Device into Stomach, Percutaneous Approach (ICD-10-PCS; 2017-07-18)
DX: J69.0 Pneumonitis due to inhalation of food and vomit (principal); N17.0 Acute kidney failure with tubular necrosis; E43 Unspecified severe protein-calorie malnutrition; G93.41 Metabolic encephalopathy; E87.0 Hyperosmolality and hypernatremia; J90 Pleural effusion, not elsewhere classified; I69.954 Hemiplegia and hemiparesis following unspecified cerebrovascular disease affecting left non-dominant side; D68.59 Other primary thrombophilia; E11.51 Type 2 diabetes mellitus with diabetic peripheral angiopathy without gangrene; E11.65 Type 2 diabetes mellitus with hyperglycemia; I42.9 Cardiomyopathy, unspecified; F02.81 Dementia in other diseases classified elsewhere, unspecified severity, with behavioral disturbance; N39.0 Urinary tract infection, site not specified; E83.51 Hypocalcemia; K43.9 Ventral hernia without obstruction or gangrene; I11.9 Hypertensive heart disease without heart failure; S09.90XA Unspecified injury of head, initial encounter; X58.XXXA Exposure to other specified factors, initial encounter; E87.8 Other disorders of electrolyte and fluid balance, not elsewhere classified; E83.42 Hypomagnesemia; S82.831A Other fracture of upper and lower end of right fibula, initial encounter for closed fracture; G90.9 Disorder of the autonomic nervous system, unspecified; R80.9 Proteinuria, unspecified; B35.1 Tinea unguium; D36.7 Benign neoplasm of other specified sites; G30.9 Alzheimer's disease, unspecified; E86.0 Dehydration; E78.5 Hyperlipidemia, unspecified; Z95.0 Presence of cardiac pacemaker; Z68.24 Body mass index [BMI] 24.0-24.9, adult; Y93.89 Activity, other specified; Y92.89 Other specified places as the place of occurrence of the external cause; Y99.8 Other external cause status
CPT/HCPCS: 36415; 70450; 71010; 73610; 73630; 80048; 80053; 81001; 82140; 82948; 83036; 83605; 83735; 83880; 84100; 84436; 84439; 84443; 84479; 84484; 85025; 85610; 85730; 87040; 87081; 87086; 92610; 93005; 93880; 93925; 93970; 93976; 94640; 96365; 96375; 97110; 97140; 97530; 99285; C9113; J0360; J1630; J1815; J1885; J1940; J1956; J2001; J2250; J2270; J3010; J3475; J3480; J3490; J7030; J7042; J7060; J7620; Q0092

== ENCOUNTER 2017-07-25 19:35 | Inpatient (IN) | payer OTHER, MEDICAID ==
[~2017-07-25] VITALS: Ht 165.1 cm; Wt 66.2 kg
[2017-07-25 19:35] VITALS: BP 124/69
[~2017-07-25 19:35] MED LIST: ACET-2619 PO; AMLO5TAB4 GT; APR20I IVP; ASPI81CT89 PO; ATOR20TA40 GT; CLIN300C2 GT; DOCU-299 GT; FURO-572 GT; GLU500 GT; HUMSLIDE SUBQ; LACT10CA GT; LEVEMIR SUBQ; LEVO250T2 GT; MAGN400T7 GT; PANT40EC GT; VAS10 GT
--- NOTE | 2017-07-25 19:35 | NUR ---
82Y F BIB[facility] C/O ALOC X 17:30 07/24/17, SKIN HOT/FLUSHED, BS [id number], ER MD AT BEDSIDE. EMS STATES PT CAME FROM [facility] FOR ALOC. FAMILY STATES PT WAS ABLE TO CONVERSE WITH FAMILY 2 DAYS AGO AND HAS NOTICED A DECREASE IN LOC X 2 DAYS, WORSENING TODAY. FAMILY STATES PT WAS ABLE TO OPEN EYES YESTERDAY BUT NOT TODAY. HX: CVA X 3 WEEKS AGO, DM BS 248, PACEMAKER TO RIGHT CHEST WALL, G-TUBE, RIGHT TIBIAL FRACTURE.
--- NOTE | 2017-07-25 19:35 | NUR ---
PT KIERSTEN ALS. TAKEN TO BED 10
[2017-07-25] MEDS ORDERED: ACETAMINOPHEN 650 MG SUPP RC ONE (19:48)
[2017-07-25] MEDS ORDERED: PIPERACILLIN/TAZOBACTAM 4.5 GM in DEXTROSE 5% 100 ML IV ONE (20:00)
[2017-07-25] MEDS ORDERED: VANCOMYCIN 1,000 MG in DEXTROSE 5% 250 ML IV ONE (20:00)
[2017-07-25] MEDS ORDERED: VANCOMYCIN 1,000 MG VIAL ONE (20:19)
[2017-07-25 20:30] LABS: APPEARANCE,URINE CLOUDY (CLEAR); BILIRUBIN,URINE NEGATIVE (NEGATIVE); BLOOD, URINE TRACE-L (NEGATIVE); COLOR,URINE YELLOW (YELLOW); LEUKOCYTE ESTERASE ,URINE 3+ (NEGATIVE); NITRITE, URINE NEGATIVE (NEGATIVE); PH,URINE 5.5 (5.0-9.0); UGLUCOSE NEGATIVE (NEGATIVE)
[2017-07-25 20:32] LABS: BASOPHILS # (AUTO) 0.3 K/uL (0.00-0.22); BASOPHILS % (AUTO) 2.2 % (0.0-2.0); EOSINOPHILS # (AUTO) 0.1 K/uL (0-0.4); EOSINOPHILS % (AUTO) 0.8 % (0.0-4.0); HEMATOCRIT 43.2 % (36-48); HEMOGLOBIN 13.8 g/dL (12.0-16.0); LYMPHOCYTES # (AUTO) 1.7 K/uL (2.5-16.5); LYMPHOCYTES % (AUTO) 14.3 % (20.5-51.1); MEAN CORPUSCULAR HEMOGLOBIN 30 pg (27-31); MEAN CORPUSCULAR HGB CONC 32 g/dL (33-37); MEAN CORPUSCULAR VOLUME 95 fL (80-94); MONOCYTES # (AUTO) 0.9 K/uL (0.8-1.0); MONOCYTES % (AUTO) 7.6 % (1.7-9.3); NEUTROPHILS # (AUTO) 8.9 K/uL (1.8-7.7); NEUTROPHILS % (AUTO) 75.1 % (42.2-75.2); PLATELET COUNT (AUTO) 225 K/uL (140-450); RED BLOOD CELL COUNT(AUTO) 4.55 MIL/uL (4.20-5.40); RED CELL DISTRIBUTION WIDTH 12.5 % (11.6-13.7); WHITE BLOOD COUNT (AUTO) 11.9 K/uL (4.8-10.8)
[2017-07-25 20:33] LABS: RBC,URINE 0-5 (RARE) /HPF (0-5); WBC,URINE 20-60 /HPF (0-5)
[2017-07-25 20:34] LABS: YEAST,URINE Many /HPF (None Seen)
[2017-07-25 20:46] LABS: PROTHROMBIN TIME 10.6 secs (10.8-13.4)
[2017-07-25 20:50] LABS: ALBUMIN 2.4 g/dL (3.4-5.0); ANION GAP 10.6 (8-16); ASPARTATE AMINOTRANSFERASE 33 U/L (15-37); CARBON DIOXIDE 38.8 mmol/L (21-32); CHLORIDE 118 mmol/L (98-107); GLUCOSE 275 mg/dL (74-106); LIPASE 313 U/L (73-393); POTASSIUM 4.4 mmol/L (3.5-5.1); TOTAL BILIRUBIN 0.5 mg/dL (0.0-1.0)
[2017-07-25 20:54] LABS: SODIUM SERUM 163 mmol/L (136-145); UREA NITROGEN, BLOOD 65 mg/dL (7-18)
[2017-07-25 20:57] LABS: CREATINE KINASE MB 0.1 ng/mL (0-3.6)
--- NOTE | 2017-07-25 21:03 | NUR ---
PT TAKEN TO RADIOLOGY
[2017-07-25] MEDS ORDERED: PIPERACILLIN/TAZOBACTAM 4.5 GM VIAL IV ONE (21:11)
--- NOTE | 2017-07-25 21:17 | NUR ---
ABG DONE RESULTS IN [place]. SPUTUM UPTAINED AND SENT TO LAB
--- NOTE | 2017-07-25 22:21 | NUR ---
SUZY MCCORMACK (DAUGHTER) [phone]
[2017-07-25] MEDS ORDERED: NACL 0.9% 2,000 ML IV ONE (22:30)
[2017-07-26] MEDS ORDERED: NACL 0.9% 1,000 ML IV SCH (00:16)
[2017-07-26] MEDS ORDERED: HYDROcodone/APAP 7.5/325 MG 1 TAB PO PRN (00:20)
[2017-07-26] MEDS ORDERED: ACETAMINOPHEN 325 MG TAB PO PRN (00:20)
[2017-07-26] MEDS ORDERED: ONDANSETRON 4 MG/2 ML VIAL IVP PRN (00:20)
--- NOTE | 2017-07-26 00:33 | NUR ---
Patient will be admitted to care of DR MUNROE. Admited to TELE 122A. Will go to room 122A. Belongings list completed. Report to AMY HARRINGTON.
[2017-07-26 00:41] VITALS: BP 132/58
--- NOTE | 2017-07-26 00:41 | NUR ---
ADMITTED A 82F FROM ER. CAME BY SAUNDRA , CAME DUE TO ALOC, UTI, DEHYDRATION AND SEPSIS. ON TELE MONITOR-PACEMAKER. PT IS ALTERED, NON VERBAL . WITH O22L/NC O2 SAT 94%. NO RESPIRATORY DISTRESS NOTED. INITIAL SKIN ASSESSMENT DONE WITH LENORN BRACELET FORM COVERER. WITH REDNESS ON SACRAL AREA , AND LT HEEL , RT HEEL WITH NON BLANCHABLE REDNESS AND BLACK SKIN BUT INTACT. POSITION FOR COMFORT. HAD A SOFT BM , CLEANED AND KEPT DRY. FREQUENT ROUNDS NEEDED. BED ALARM ON. CALL LIGHT PLACED WITHIN EASY REACH. NO FAMILY PRESENT TO GET INFORMATION BUT PAPERS FROM SNF AVAILABLE. WILL FOLLOW UP ADMIT ORDERS.
--- NOTE | 2017-07-26 01:00 | NUR ---
PT CAME WITH ARTEAGA CATHETER , INSERTED IN ER. DRAINING CLEAR YELLOW URINE.
[2017-07-26 01:10] LABS: MAGNESIUM 2.6 mg/dL (1.8-2.4); PHOSPHORUS 3.9 mg/dL (2.5-4.9)
[2017-07-26] MEDS ORDERED: DEXTROSE 50% 50 ML SYR IVP PRN (01:10)
[2017-07-26] MEDS ORDERED: LACTULOSE 20 GM/30 ML UDC PO SCH (01:10)
[2017-07-26] MEDS ORDERED: MAG SULF 2000 MG/WATER PREMIX 50 ML IV SCH (01:10)
[2017-07-26] MEDS: NACL 0.45% 1,000 ML IV SCH ×2 (01:18→12:37)
--- NOTE | 2017-07-26 01:59 | NUR ---
BLOOD SUGAR WAS CHECKED RESULT 403. DR. TINOCO,RESIDENT WAS PAGED, CALLED BACK AND MADE AWARE. WILL GIVE ORDER.
[2017-07-26] MEDS ORDERED: INSULIN LISPRO 100 UNITS/ML VIAL SUBQ SCH (02:00)
--- NOTE | 2017-07-26 03:00 | NUR ---
GT SITE ,NO REDNESS. CHECKED PLACEMENT WITH GOOD BOWEL SOUNDS NOTED.
[2017-07-26 04:15] VITALS: BP 123/48
--- NOTE | 2017-07-26 04:41 | NUR ---
WILL TRY TO CALL FAMILY THIS AM TO FOLLOW UP VACCINATION HISTORY.
[2017-07-26 05:07] LABS: BASOPHILS # (AUTO) 0.2 K/uL (0.00-0.22); BASOPHILS % (AUTO) 1.3 % (0.0-2.0); EOSINOPHILS # (AUTO) 0.1 K/uL (0-0.4); EOSINOPHILS % (AUTO) 0.6 % (0.0-4.0); HEMATOCRIT 34.5 % (36-48); HEMOGLOBIN 11.2 g/dL (12.0-16.0); LYMPHOCYTES # (AUTO) 1.1 K/uL (2.5-16.5); LYMPHOCYTES % (AUTO) 7.8 % (20.5-51.1); MEAN CORPUSCULAR HEMOGLOBIN 31 pg (27-31); MEAN CORPUSCULAR HGB CONC 32 g/dL (33-37); MEAN CORPUSCULAR VOLUME 95 fL (80-94); MONOCYTES # (AUTO) 0.7 K/uL (0.8-1.0); MONOCYTES % (AUTO) 5.1 % (1.7-9.3); NEUTROPHILS # (AUTO) 11.7 K/uL (1.8-7.7); NEUTROPHILS % (AUTO) 85.2 % (42.2-75.2); PLATELET COUNT (AUTO) 176 K/uL (140-450); RED BLOOD CELL COUNT(AUTO) 3.62 MIL/uL (4.20-5.40); RED CELL DISTRIBUTION WIDTH 12.3 % (11.6-13.7)
[2017-07-26] MEDS: BLOOD GLUCOSE MONITORING 1 DEV DEV FS SCH ×4 (05:45→20:42)
[2017-07-26] MEDS ORDERED: PIPER/TAZO 2.25GM/D5W PREMIX 50 ML IV SCH (06:00)
[2017-07-26 06:04] LABS: ANION GAP 10.2 (8-16); CARBON DIOXIDE 32.8 mmol/L (21-32); CHLORIDE 120 mmol/L (98-107); CREATININE 1.8 mg/dL (0.6-1.3)
[2017-07-26 06:08] LABS: GLUCOSE 466 mg/dL (74-106); SODIUM SERUM 159 mmol/L (136-145); UREA NITROGEN, BLOOD 64 mg/dL (7-18)
[2017-07-26 06:22] LABS: MAGNESIUM 2.3 mg/dL (1.8-2.4); PHOSPHORUS 4.4 mg/dL (2.5-4.9)
[2017-07-26] MEDS ORDERED: PIPERACILLIN/TAZOBACTAM 2.25 GM VIAL IV ONE (06:22)
[2017-07-26] MEDS ORDERED: INSULIN LISPRO 100 UNITS/ML VIAL SUBQ ONE (06:25)
[2017-07-26] MEDS ORDERED: INSULIN DETEMIR 100 UNITS/ML 10 ML VIAL SUBQ ONE (06:25)
--- NOTE | 2017-07-26 06:33 | NUR ---
BLOOD SUGAR WAS CHECKED EARLIER 0545 RESULT 401, BUT AT O607 LAB CALLED FOR CRITICAL VALUES, BLOOD SUGAR 466. DR. TINOCO MADE AWARE ON ALL CRITICAL LABS, WITH ORDERS.
[2017-07-26 06:38] LABS: WHITE BLOOD COUNT (AUTO) 13.8 K/uL (4.8-10.8)
--- NOTE | 2017-07-26 06:40 | NUR ---
JUST TALKED TO SUZY MCCORMACK -DAUGHTER AND MADE AWARE THAT SHE NEEDS TO COME AND SIGN ADMIT PAPERS, SHE SIAD SHE IS COMING THIS PM. ALSO SHE SAID THAT PT HAD FLU VACCINE IN [facility]ST . SHE SAID SHE IS GOING TO CHECK ABOUT THE PNA VACCINE IF ALSO GIVNE THERE.
--- NOTE | 2017-07-26 07:30 | NUR ---
ENDORSED PT IN STABLE CONDITION TO AM NURSE.
--- NOTE | 2017-07-26 07:31 | NUR ---
RECEIVED REPORT FROM THE PROFESSIONAL HEALTHCARE REPRESENTATIVE NURSE AT BEDSIDE FOR CONTINUITY OF CARE. PT IS SLEEPING. NO SIGNS OF DISTRESS. NC IN PLACE, O2 2L; IV SITE DRY AND INTACT. R AC 20G 1/2 NS INFUSING AT 100ML/HR. G-TUBE IN PLACE. DIABETASOURCE AT 15ML/HR, FREE H20 FLUSHING Q6 AT 85ML/HR. ARETAGA CATH IN PLACE. CLEAR YELLOW URINE IN BAG. R LOWER LEG SPLINT WITH RAFAELA BANDAGING. NOTED SOME REDNESS ON L HEEL. ELEVATED WITH A PILLOW. SCD IN LLE ONLY. WILL CONTINUE TO MONITOR PT.
[2017-07-26 08:00] VITALS: BP 131/54
[2017-07-26] MEDS ORDERED: metFORMIN 500 MG TAB GT SCH (08:00)
--- NOTE | 2017-07-26 08:56 | NUR ---
PATIENT HAS BEEN SCREENED AND CATEGORIZED HIGH NUTRITION RISK. PATIENT WILL BE SEEN WITHIN 1-2 DAYS OF ADMISSION. 07/26/17-07/27/[address]
[2017-07-26] MEDS: amLODIPine 5 MG TAB GT SCH (09:14)
[2017-07-26] MEDS: ENALAPRIL 10 MG TAB GT SCH ×2 (09:14→21:02)
[2017-07-26] MEDS: ATORVASTATIN 20 MG TAB GT SCH (09:15)
[2017-07-26] MEDS: DOCUSATE 100 MG/10 ML UDC PEG SCH ×2 (09:15→21:02)
[2017-07-26] MEDS: FOLIC ACID 1 MG TAB PEG SCH (09:15)
[2017-07-26] MEDS: ASPIRIN 81 MG TAB.CHEW PO SCH (09:15)
[2017-07-26] MEDS: LACTOBACILLUS RHAMNOSUS GG 1 EACH CAP PO SCH (09:15)
[2017-07-26] MEDS: FUROSEMIDE 40 MG/5 ML ORAL SOL UDC GT SCH (09:16)
[2017-07-26] MEDS: PANTOPRAZOLE 40 MG INJ VIAL IVP SCH (09:16)
[2017-07-26] MEDS: FLUCONAZOLE 200 MG/NS PREMIX 100 ML IV SCH (09:17)
[2017-07-26] MEDS: THIAMINE 200 MG/2 ML VIAL IM SCH (09:17)
[2017-07-26] MEDS: HYDRAGUARD CREAM TP SCH (09:24)
--- NOTE | 2017-07-26 10:20 | NUR ---
FAMILY MEMBERS HERE. PT AWAKE AND MORE ORIENTED. OBEYS COMMANDS AND ANSWERS SIMPLE QUESTIONS.
--- NOTE | 2017-07-26 11:23 | NUR ---
FAXED INITIAL REVEIW TO [facility] [phone] PHONE [phone]
--- NOTE | 2017-07-26 11:31 | NUR ---
EQUIPMENT OPERATOR WAREHOUSE CAME BY. HOLD INCREASE TO THE FEEDING IF GLUCOSE LEVEL REMAINS HIGH. WILL CHECK GLUCOSE LEVEL.
[2017-07-26 12:00] VITALS: BP 134/53
--- NOTE | 2017-07-26 12:06 | NUR ---
07/26/17 RD INITIAL ASSESSMENT COMPLETED PLEASE REFER TO NUTRITION ASSESSMENT UNDER CARE ACTIVITY FOR ESTIMATED NUTRITIONAL NEEDS. 1. CONTINUE NUTRITION SUPPORT DIABETISOURCE AT 15 ML/HR UNTIL BLOOD GLUCOSE LEVELS HAVE STABILIZED (< 200 MG/DL). 2. ONCE BLOOD GLUCOSE LEVELS HAVE STABILIZED, CONSIDER ADVANCING NUTRITION SUPPORT 15 ML Q4H TO NEW GOAL OF 65 ML/HR --WITH NEW GOAL PT WILL BE RECEIVING 1872 KCAL AND 94 GM PROTEIN MEETING 100% OF PT ESTIMATED NUTRIENT NEEDS 3. RD TO FOLLOW-UP 2-3 DAYS, HIGH RISK HELENA LESTER RD
[2017-07-26 12:10] LABS: ANION GAP 9.1 (8-16); CARBON DIOXIDE 33.7 mmol/L (21-32); CHLORIDE 121 mmol/L (98-107); CREATININE 1.6 mg/dL (0.6-1.3); GLUCOSE 285 mg/dL (74-106); POTASSIUM 3.8 mmol/L (3.5-5.1); UREA NITROGEN, BLOOD 59 mg/dL (7-18)
[2017-07-26 12:15] LABS: SODIUM SERUM 160 mmol/L (136-145)
[2017-07-26] MEDS: INSULIN LISPRO SLIDING SCALE 100 UNITS/ML VIAL SUBQ PRN ×2 (12:35→17:16)
[2017-07-26] MEDS: PIPER/TAZO 2.25GM/D5W PREMIX 50 ML IV SCH ×2 (12:37→20:41)
--- NOTE | 2017-07-26 14:47 | NUR ---
ALCOHOL LAW ENFORCEMENT AGENT CLEANED AND REPOSITIONED PT. ASSESSED SKIN. PT TOLERATED WELL. WILL CONTINUE TO MONITOR PT.
[2017-07-26] MEDS ORDERED: PNEUMOCOCCAL VACCINE 23 MCG/0.5 ML VIAL IMVAC SCH (15:40)
--- NOTE | 2017-07-26 16:00 | NUR ---
PT RESTING COMFORTABLY. NO SIGNS OF DISTRESS. WILL CONTINUE TO MONITOR PT.
[2017-07-26 17:28] LABS: ANION GAP 15.2 (8-16); CARBON DIOXIDE 21.5 mmol/L (21-32); CHLORIDE 109 mmol/L (98-107); CREATININE 0.7 mg/dL (0.6-1.3); GLUCOSE 131 mg/dL (74-106); POTASSIUM 3.7 mmol/L (3.5-5.1); SODIUM SERUM 142 mmol/L (136-145); UREA NITROGEN, BLOOD 17 mg/dL (7-18)
--- NOTE | 2017-07-26 18:35 | NUR ---
PT RESTING COMFORTABLY NO SIGNS OF DISTRESS. FAMILY VISITING. WILL CONTINUE TO MONITOR PT.
--- NOTE | 2017-07-26 19:30 | NUR ---
ENDORSED PT TO THE NIGHTSHIFT NURSE AT BEDSIDE FOR CONTINUITY OF CARE. PT IS SLEEPING. NO SIGNS OF DISTRESS. PT IN STABLE CONDITION.
--- NOTE | 2017-07-26 19:31 | NUR ---
RECEIVED REPORT FROM DAY NURSE VERA HARRINGTON AT THE BEDSIDE, PT IN STABLE CONDITION. NO S/S OF DISTRESS NOTED. PT IS AAOX3, ON BEDREST. G TUBE NOTED ON THE LL QUADRANT DRESSING IS DRY AND INTACT. ARTEAGA CATHETER NOTED DRAINING YELLOW, CLEAR URINE. PT HAS R FIBULAR FRACTURE WITH CAST IN PLACE. REDNESS TO THE COCCYX AND L HEEL. SKIN IS INTACT. RESPIRATIONS ARE EVEN AND UNLABORED. IV TO R AC 20G PATENT AND INTACT. INITIAL ASSESSMENT COMPLETED, PLAN OF CARE DISCUSSED WITH PT AT BEDSIDE, REINFORCEMENT NEEDED. ALL SAFETY PRECAUTIONS MET, CALL LIGHT WITHIN REACH, WILL CONTINUE TO MONITOR
[2017-07-26 20:00] VITALS: BP 142/69
[2017-07-26] MEDS: NACL 0.9% 1,000 ML IV SCH (20:26)
[2017-07-26] MEDS: INSULIN DETEMIR 100 UNITS/ML 10 ML VIAL SUBQ SCH (20:46)
--- NOTE | 2017-07-26 22:30 | NUR ---
PT RESTING COMFORTABLY IN BED NO S/S OF DISTRESS NOTED. ALL SAFETY PRECAUTIONS MET, CALL LIGHT WITHIN REACH, WILL CONTINUE TO MONITOR
[2017-07-27] VITALS: BP 148/53
--- NOTE | 2017-07-27 01:30 | NUR ---
PT RESTING COMFORTABLY IN BED NO S/S OF DISTRESS NOTED. ALL SAFETY PRECAUTIONS MET, CALL LIGHT WITHIN REACH, WILL CONTINUE TO MONITOR
--- NOTE | 2017-07-27 03:00 | NUR ---
PT RESTING COMFORTABLY IN BED NO S/S OF DISTRESS NOTED. ALL SAFETY PRECAUTIONS MET, CALL LIGHT WITHIN REACH, WILL CONTINUE TO MONITOR. PT IS APPOSABLE TO NAME
[2017-07-27 04:00] VITALS: BP 148/70
[2017-07-27] MEDS: NACL 0.9% 1,000 ML IV SCH (05:39)
[2017-07-27] MEDS: PIPER/TAZO 2.25GM/D5W PREMIX 50 ML IV SCH ×3 (05:39→20:19)
[2017-07-27 06:06] LABS: BASOPHILS # (AUTO) 0.1 K/uL (0.00-0.22); EOSINOPHILS # (AUTO) 0.4 K/uL (0-0.4); EOSINOPHILS % (AUTO) 3.8 % (0.0-4.0); HEMOGLOBIN 10.7 g/dL (12.0-16.0); LYMPHOCYTES # (AUTO) 2.2 K/uL (2.5-16.5); LYMPHOCYTES % (AUTO) 18.6 % (20.5-51.1); MEAN CORPUSCULAR HEMOGLOBIN 31 pg (27-31); MEAN CORPUSCULAR HGB CONC 33 g/dL (33-37); MEAN CORPUSCULAR VOLUME 95 fL (80-94); MONOCYTES # (AUTO) 0.5 K/uL (0.8-1.0); NEUTROPHILS # (AUTO) 8.6 K/uL (1.8-7.7); NEUTROPHILS % (AUTO) 72.6 % (42.2-75.2); PLATELET COUNT (AUTO) 168 K/uL (140-450); RED BLOOD CELL COUNT(AUTO) 3.49 MIL/uL (4.20-5.40); RED CELL DISTRIBUTION WIDTH 11.9 % (11.6-13.7); WHITE BLOOD COUNT (AUTO) 11.8 K/uL (4.8-10.8)
--- NOTE | 2017-07-27 06:22 | NUR ---
PT KEPT CLEAN AND DRY, ARTEAGA CATHETER CARE PROVIDED, PT TURNED Q 2 HOURS.
[2017-07-27] MEDS: BLOOD GLUCOSE MONITORING 1 DEV DEV FS SCH ×4 (06:30→20:18)
[2017-07-27] MEDS: INSULIN LISPRO SLIDING SCALE 100 UNITS/ML VIAL SUBQ PRN ×4 (06:31→20:44)
[2017-07-27 06:36] LABS: CARBON DIOXIDE 33.7 mmol/L (21-32); CHLORIDE 122 mmol/L (98-107); CREATININE 1.3 mg/dL (0.6-1.3); GLUCOSE 158 mg/dL (74-106); POTASSIUM 3.7 mmol/L (3.5-5.1); UREA NITROGEN, BLOOD 41 mg/dL (7-18)
[2017-07-27 06:46] LABS: MAGNESIUM 2.2 mg/dL (1.8-2.4); PHOSPHORUS 3.1 mg/dL (2.5-4.9)
--- NOTE | 2017-07-27 07:25 | NUR ---
GAVE REPORT TO DAY NURSE GUANAKITO RN AT THE BEDSIDE FOR CONTINUITY OF CARE, PT REMAINS STABLE
--- NOTE | 2017-07-27 07:30 | NUR ---
RECEIVED PT REPORT AT BEDSIDE FROM NIGHT NURSE. PT IS ALERT AND AWAKE AND SHOWS NO S/S OF ACUTE DISTRESS O2 @ 2L NC. PT DENIES PAIN. PT HAD SACRAL REDNESS AND R LOWER LEG WRAP IN RAFAELA BANDAGE. ARTEAGA CATHETER IN PLACE WITH CLEAR YELLOW URINE. GT IN PLACE AT RUQ WITH FEEDING INFUSING WELL. HELD TF AND CHECK FOR CORRECT PLACEMENT WITH NO RESIDUAL ASPIRATED. PT ON TELE MONITOR. IV NOTED ON THE R AC WITH IVF'S INFUSING WELL. IV IS PATENT AND INTACT WITH NO SIGNS OF INFILTRATION. PT WAS EXPLAINED POC FOR TODAY HOWEVER UNABLE TO VERBALIZE UNDERSTANDING. THE BED IS IN LOW POSITION WITH CALL LIGHT WITHIN REACH. ALL NEED'S MET AT THIS TIME. WILL CONTINUE TO MONITOR.
[2017-07-27 07:37] LABS: SODIUM SERUM 160 mmol/L (136-145)
[2017-07-27 08:00] VITALS: BP 156/69
[2017-07-27] MEDS: DEXTROSE 5% 1,000 ML IV SCH ×2 (08:00→18:00)
[2017-07-27] MEDS: FUROSEMIDE 40 MG/5 ML ORAL SOL UDC GT SCH (09:22)
[2017-07-27] MEDS: ATORVASTATIN 20 MG TAB GT SCH (09:24)
[2017-07-27] MEDS: LACTOBACILLUS RHAMNOSUS GG 1 EACH CAP PO SCH (09:25)
[2017-07-27] MEDS: FOLIC ACID 1 MG TAB PEG SCH (09:26)
[2017-07-27] MEDS: ENALAPRIL 10 MG TAB GT SCH ×2 (09:27→20:19)
[2017-07-27] MEDS: FLUCONAZOLE 200 MG/NS PREMIX 100 ML IV SCH (09:28)
[2017-07-27] MEDS: ASPIRIN 81 MG TAB.CHEW PO SCH (09:28)
[2017-07-27] MEDS: amLODIPine 5 MG TAB GT SCH (09:29)
[2017-07-27] MEDS: DOCUSATE 100 MG/10 ML UDC PEG SCH ×2 (09:30→20:19)
[2017-07-27] MEDS: PANTOPRAZOLE 40 MG INJ VIAL IVP SCH (09:30)
[2017-07-27] MEDS: THIAMINE 200 MG/2 ML VIAL IM SCH (09:30)
--- NOTE | 2017-07-27 09:50 | NUR ---
GT FEEDING WAS HELD. GT WAS ASPIRATED AND NO RESIDUAL INDICATED. GT IS PATENT AND INTACT. ADMINISTERED SCHEDULED MEDICATIONS. EACH MEDICATION WERE INDIVIDUALLY CRUSHED GIVEN WITH STERILE WATER. 10CC OF STERILE WATER WAS FLUSHED AFTER ADMINISTRATION OF MEDICATIONS. IV ABX IS INFUSING WELL. PT TF WAS CONTINUED AND PT IS IN HIGH FOWLERS POSITION. THE BED IS IN LOW POSITION WITH CALL LIGHT WITHIN REACH.
[2017-07-27] MEDS: HYDRAGUARD CREAM TP SCH ×2 (09:59→13:00)
--- NOTE | 2017-07-27 10:30 | NUR ---
PT TF WAS HELD AND PT WAS REPOSITIONED AND GIVEN A SPONGE BATH AND PERINEAL CARE. PT TOLERATED ACTIVITY WELL. APPLIED HYDRAGAURD AT SACRUM AND BILATERAL LOWER LEGS AND FEET. PT'S NEEDS MET AT THIS TIME. BED IN LOW POSITION WITH CALL LIGHT WITHIN REACH, AND BED ALARM ACTIVATED.
[2017-07-27] MEDS ORDERED: Z-GUARD PASTE TP PRN (10:35)
--- NOTE | 2017-07-27 11:00 | NUR ---
WOUND CARE EVALUATION NOTE: REASON FOR EVALUATION RIGHT HEEL DTI COMPLETE SKIN ASSESSMENT DONE ON THIS 82 Y/O FEMALE PATIENT FROM [facility] TO [facility], WITH INITIAL DIAGNOSIS OF ALOC. PAST MEDICAL HISTORY INCLUDE CVA, HYPERTENSION,DEMENTIA,DIABETIC. ALL ABOVE INFORMATION WAS OBTAINED FROM THE ADMISSION H&P. LABS ARE WBC 11.8, H/H 10.7/33, GLUCOSE 158, RT/INR 10.6/1.0, PTT 26.1 AND ALBUMIN 2.4. CURRENT MEDS INCLUDE PIPERACILLIN, FOLIC ACID, FUROSEMIDE, ENOXAPARIN AND INSULIN. SKIN WARM TO TOUCH WNL, SKIN TURGOR GOOD. CAPILLARY REFILLED <3 SEC. TOENAILS ARE SHORT AND THICKENED, NO HAIR GROWTH, BILATERAL DORSAL PEDAL PULSES PRESENT. GT FEEDING ORDER WITH FWF AND F/C#16 PATENT WITH CLEAR YELLOW URINE IN SMALL AMOUNT. DAUGHTER VISITED AND PLAN OF CARE EXPLAINED TO DAUGHTER AND PT. DAUGHTER VERBALIZES UNDERSTAND. PLAN OF CARE DISCUSS WITH PRIMARY RN, ALSO PRIMARY RN TO VERIFY ORDER OF ANKLE SPLINT WITH ORTHOPEDIC INTEGUMENTARY: BLE DRYNESS SACRALCOCCYX IAD REDNESS 4X2 CM, SKIN INTACT LUQ GT STOMA SITE DRY AND CLEAN, ELIANE STOMA SKIN INTACT PINK IN COLOR RIGHT HEEL DTI 3X4 CM 100% MAROON , WITH SURROUNDING REDNESS 4X5 CM INDICATED FURTHER DAMAGE, DTI POSSIBLE FROM SOLE ROUNDER LEFT HEEL- BLANCHABLE REDNESS RECOMMENDATIONS: -APPLY HYDRAGUARD TO BLE DRYNESS AREA -CLEANSE SACRAL COCCYX WITH SOAP AND WATER, PAD DRY AND APPLY THIN LAYER OF Z GUARD BID AND PRN IF SOILING, C 40A CREW CHIEF -CLEANSE RIGHT HEEL DTI WITH NS, PAT DRY, APPLY SKIN PROTECTIVE BARRIER WIPE QD AND C 40A CREW CHIEF -TURN AND REPOSITION PATIENT Q 2H -ASSESS AND MONITOR SKIN CONDITION DURING POSITION CHANGE, PLEASE PAY ATTENTION TO HEELS AND SACRAL COCCYX -USE ABD PAD CUSHION TO PAD THE EDGE OF ANKLE SPLINT, WRAP ANKLE SPLINT WITH RAFAELA BANDAGE, REMOVE AND REAPPLY Q2H FOR CIRCULATION AND OFFLOAD HEEL TO SURFACE FOR 10 MINUTES -OFFLOAD BILATERAL HEELS BY PLACING PILLOWS UNDER CALVES AT ALL TIMES, UNLESS OTHERWISE CONTRAINDICATED -PRESSURE REDISTRIBUTION SURFACE THERAPY -KEEP SKIN CLEAN AND DRY AT ALL TIMES. MAY APPLY BODY LOTION TO DRYNESS AREA. RECOMMENDATIONS DISCUSSED WITH PRIMARY RN AND DR. GREENBERG WILL FOLLOW UP PATIENT Q7- 10 DAYS AND PRN. PLEASE CONTACT WOUND CARE NURSE FOR ANY CONCERNS, QUESTIONS AND CHANGES IN SKIN CONDITION.
--- NOTE | 2017-07-27 11:00 | NUR ---
WOUND CARE EVALUATION WAS PROVIDED TO PATIENT WITH GHANSHYAM WOUND CARE NURSE. R LOWER LEG WRAP WAS TAKEN OFF TO ASSESS DTI ON THE RT HEEL. RT HEEL DTI 3X4 CM PURPLE WITH SURROUNDING ERYTHEMA 4X5 CM INDICATING FURTHER DAMAGE. DR GREENBERG WAS NOTIFIED OF RECOMMENDATION TO DISCONTINUE SOFT CAST WRAP. STATED SHE WILL FOLLOW UP WITH RECOMMENDATION. PT SACRUM HAS REDNESS AND RECOMMENDATION FOR Z GAURD WAS INDICATED FOR INCONTINENT ASSOCIATED DERMATITIS.
[2017-07-27 12:00] VITALS: BP 164/69
[2017-07-27] MEDS: Z-GUARD PASTE TP SCH (13:00)
--- NOTE | 2017-07-27 13:30 | NUR ---
IV ACCESS WAS DISCONTINUED DUE TO LEAKING AND INFILTRATED AT SITE. IV WAS DISCONTINUE WITH CANNULA INTACT. NEW IV ACCESS WILL BE ATTEMPTED.
--- NOTE | 2017-07-27 13:40 | NUR ---
CLINICAL REVIEW FAXED TO INSURANCE, [facility]
--- NOTE | 2017-07-27 14:00 | NUR ---
IV ACCESS ATTEMPTED TWICE AND WAS SUCCESSFUL ON THE R H 22 G WITH IVF'S INFUSING WELL.
--- NOTE | 2017-07-27 14:30 | NUR ---
NEW IV ACCESS WAS SUCCESSFUL AND IS INFUSING WELL. IV ABX WAS ADMINISTERED. PT'S NEEDS MET AT THIS TIME.
[2017-07-27 14:53] LABS: ANION GAP 7.6 (8-16); CARBON DIOXIDE 34.1 mmol/L (21-32); CHLORIDE 117 mmol/L (98-107); CREATININE 1.2 mg/dL (0.6-1.3); GLUCOSE 258 mg/dL (74-106); POTASSIUM 3.7 mmol/L (3.5-5.1); SODIUM SERUM 155 mmol/L (136-145); UREA NITROGEN, BLOOD 38 mg/dL (7-18)
--- NOTE | 2017-07-27 15:30 | NUR ---
PT WAS PROVIDED WITH WOUND CARE BED. TF WAS HELD. PT WAS THEN GIVEN PERINEAL CARE AND REPOSITIONED. PT TOLERATED ACTIVITY. THE HEAD OF BED IS AT 45 DEGREES AND TF WAS CONTINUED. DR NUÑEZ CAME INTO ROOM AND IS AWARE TF HAS NOT BEEN ADVANCED DUE TO HIGH BLOOD SUGAR. IVF'S HAS 200CC LEFT TO BE INFUSED FOR A TOTAL OF 500CC THEN BMP MAY BE DRAWN. PT'S NEEDS MET AT THIS TIME WILL CONTINUE TO MONITOR.
[2017-07-27 16:00] VITALS: BP 163/72
--- NOTE | 2017-07-27 16:15 | NUR ---
PT'S AXILLARY TEMPERATURE IS 99.7 F. PT WAS GIVEN COOLING MEASURES OF ICE PACKS PLACED UNDER UNDERARMS, ONE SHEET, AND ROOM'S AIR TURNED ON. PT SHOWS NO S/S OF ACUTE DISTRESS ON O2 @ 2L VIA NC. THE BED IS IN LOW POSITION WITH CALL LIGHT WITHIN REACH WILL CONTINUE TO MONITOR.
--- NOTE | 2017-07-27 17:15 | NUR ---
PT GT LINES WERE CHANGED. DIABETI SOURCE RUNNING AT 35ML/HR WITH FREE H2O FLUSH OF 85 ML Q6H. NO RESIDUAL NOTED. PT GRANDDAUGHTER AT BEDSIDE. WILL CONTINUE TO MONITOR.
--- NOTE | 2017-07-27 18:17 | NUR ---
PT IS SLEEPING AND SHOWS NO S/S OF ACUTE DISTRESS ON O2 @ 2L VIA NC. ON TELE MONITOR. SCD'S IN PLACE, FALL RISK PROTOCOL IN PLACE, WOUND CARE BED ACTIVATED, BED ALARM ACTIVATED. RT HEEL SOFT CAST CLEAN DRY AND INTACT; ARTEAGA CATHETER DRAINING CLEAR YELLOW URINE; GT FEEDING INFUSING WELL AT 35 ML/HR WITH FREE H2O FLUSH AT 85 ML/HR Q6H WITH NO RESIDUAL INDICATED. TF NOT ADVANCED DURING SHIFT D/T HIGH BS READINGS. DR NUÑEZ WAS NOTIFIED. ABD BINDER IN PLACE; IV AT RT HAND INFUSING D5 @ 100ML/HR. THE BED IN LOW POSITION WITH CALL LIGHT WITHIN REACH. WILL CONTINUE TO MONITOR.
[2017-07-27 18:42] LABS: ANION GAP 8.8 (8-16); CARBON DIOXIDE 32.8 mmol/L (21-32); CHLORIDE 117 mmol/L (98-107); CREATININE 1.2 mg/dL (0.6-1.3); GLUCOSE 305 mg/dL (74-106); POTASSIUM 3.6 mmol/L (3.5-5.1); SODIUM SERUM 155 mmol/L (136-145); UREA NITROGEN, BLOOD 34 mg/dL (7-18)
--- NOTE | 2017-07-27 19:25 | NUR ---
PT REPORT GIVEN AT BEDSIDE TO NIGHT NURSE. PT ENDORSED IN STABLE CONDITION.
--- NOTE | 2017-07-27 19:26 | NUR ---
RECEIVED REPORT FROM DAY SHIFT RN AT PT BEDSIDE FOR CONTINUITY OF CARE. PT IS A/OX1, ON O2 @ 2L VIA NC. PT HAS A RIGHT HAND IV 22G INFUSING D5@100. DTI TO RIGHT HEEL AND ERYTHEMA TO SACRUM. SAFETY PRECAUTIONS IN PLACE. UPDATED BOARD. DISCUSSED PLAN OF CARE WITH PT, PT VERBALIZED UNDERSTANDING. VITAL SIGNS WITHIN NORMAL LIMITS. PT IN STABLE CONDITION, NO SIGNS OF DISTRESS NOTED. BED IN LOW POSITION, CALL LIGHT WITHIN REACH. WILL CONTINUE TO MONITOR.
[2017-07-27 20:00] VITALS: BP 143/61
[2017-07-27] MEDS: INSULIN DETEMIR 100 UNITS/ML 10 ML VIAL SUBQ SCH (20:19)
[2017-07-28] VITALS: BP 156/71
[2017-07-28] MEDS: HYDRAGUARD CREAM TP SCH ×2 (01:21→12:57)
[2017-07-28] MEDS: Z-GUARD PASTE TP SCH ×2 (01:21→12:57)
[2017-07-28 04:00] VITALS: BP 179/77
[2017-07-28] MEDS: DEXTROSE 5% 1,000 ML IV SCH (04:00)
--- NOTE | 2017-07-28 04:34 | NUR ---
SPOKE TO DR BUCHANAN ABOUT PT BP BEING 179/77. WILL ORDER SOMETHING FOR PT.
[2017-07-28] MEDS: PIPER/TAZO 2.25GM/D5W PREMIX 50 ML IV SCH ×3 (05:38→20:18)
[2017-07-28] MEDS: INSULIN LISPRO SLIDING SCALE 100 UNITS/ML VIAL SUBQ PRN ×4 (07:01→20:30)
[2017-07-28] MEDS: BLOOD GLUCOSE MONITORING 1 DEV DEV FS SCH ×4 (07:02→20:22)
[2017-07-28 07:10] LABS: BASOPHILS # (AUTO) 0.1 K/uL (0.00-0.22); BASOPHILS % (AUTO) 1.3 % (0.0-2.0); EOSINOPHILS # (AUTO) 0.6 K/uL (0-0.4); HEMATOCRIT 32.1 % (36-48); HEMOGLOBIN 10.5 g/dL (12.0-16.0); LYMPHOCYTES # (AUTO) 1.6 K/uL (2.5-16.5); LYMPHOCYTES % (AUTO) 17.2 % (20.5-51.1); MEAN CORPUSCULAR HEMOGLOBIN 30 pg (27-31); MEAN CORPUSCULAR HGB CONC 33 g/dL (33-37); MEAN CORPUSCULAR VOLUME 92 fL (80-94); MONOCYTES # (AUTO) 0.3 K/uL (0.8-1.0); MONOCYTES % (AUTO) 3.7 % (1.7-9.3); NEUTROPHILS # (AUTO) 6.8 K/uL (1.8-7.7); NEUTROPHILS % (AUTO) 71.8 % (42.2-75.2); PLATELET COUNT (AUTO) 172 K/uL (140-450); RED CELL DISTRIBUTION WIDTH 11.6 % (11.6-13.7); WHITE BLOOD COUNT (AUTO) 9.4 K/uL (4.8-10.8)
[2017-07-28 07:27] LABS: ANION GAP 7.1 (8-16); CARBON DIOXIDE 36.5 mmol/L (21-32); CHLORIDE 112 mmol/L (98-107); CREATININE 1.1 mg/dL (0.6-1.3); GLUCOSE 290 mg/dL (74-106); POTASSIUM 3.6 mmol/L (3.5-5.1); SODIUM SERUM 152 mmol/L (136-145); UREA NITROGEN, BLOOD 27 mg/dL (7-18)
--- NOTE | 2017-07-28 07:29 | NUR ---
ENDORSED PT TO DAY SHIFT NURSE FOR CONTINUITY OF CARE. PT IN STABLE CONDITION, WITHOUT SIGNS OF DISTRESS.
--- NOTE | 2017-07-28 07:30 | NUR ---
RECEIVED PT REPORT AT BEDSIDE FROM NIGHT NURSE. PT IS SLEEPING AND DROWSY AND SHOWS NO S/S OF ACUTE DISTRESS O2 @ 2L NC. PT IS AROUSABLE TO NAME AND SHAKING, SHE DENIES PAIN. PT HAD SACRAL REDNESS AND R LOWER LEG SOFT CAST WRAPPED IN RAFAELA BANDAGE. ARTEAGA CATHETER IN PLACE WITH CLEAR YELLOW URINE. GT IN PLACE AT LUQ WITH FEEDING INFUSING WELL. HELD TF AND CHECK FOR CORRECT PLACEMENT WITH NO RESIDUAL ASPIRATED. PT ON TELE MONITOR. IV NOTED ON THE R HAND WITH IVF'S INFUSING WELL. IV IS PATENT AND INTACT WITH NO SIGNS OF INFILTRATION. PT WAS EXPLAINED POC FOR TODAY HOWEVER UNABLE TO VERBALIZE UNDERSTANDING PT MUMBLES. THE BED IS IN LOW POSITION WITH CALL LIGHT WITHIN REACH. FALL PRECAUTIONS IN PLACE, WOUND CARE BED ACTIVATED, ALL NEED'S MET AT THIS TIME. WILL CONTINUE TO MONITOR.
[2017-07-28 08:00] VITALS: BP 163/80
--- NOTE | 2017-07-28 08:00 | NUR ---
FAMILY CONCERNED FOR PT BC FAMILY STATED, " HER LEFT ARM LOOKS SWOLLEN." DR NUÑEZ NOTIFIED AND TO SEE PT. PT LEFT ARM WITH PITTING EDEMA 2+.
[2017-07-28] MEDS ORDERED: DEXTROSE 5% 1,000 ML IV SCH (08:05)
[2017-07-28 08:27] LABS: PHOSPHORUS 2.3 mg/dL (2.5-4.9)
--- NOTE | 2017-07-28 09:15 | NUR ---
PT BEING SEEN BY COSTUMER ASSISTANT.
[2017-07-28] MEDS: LACTOBACILLUS RHAMNOSUS GG 1 EACH CAP PO SCH (09:36)
[2017-07-28] MEDS: ATORVASTATIN 20 MG TAB GT SCH (09:36)
[2017-07-28] MEDS: FUROSEMIDE 40 MG/5 ML ORAL SOL UDC GT SCH (09:36)
[2017-07-28] MEDS: amLODIPine 5 MG TAB GT SCH (09:37)
[2017-07-28] MEDS: ASPIRIN 81 MG TAB.CHEW PO SCH (09:37)
[2017-07-28] MEDS: FOLIC ACID 1 MG TAB PEG SCH (09:37)
[2017-07-28] MEDS: THIAMINE 200 MG/2 ML VIAL IM SCH (09:38)
[2017-07-28] MEDS: ENALAPRIL 10 MG TAB GT SCH (09:38)
[2017-07-28] MEDS: FLUCONAZOLE 200 MG/NS PREMIX 100 ML IV SCH (09:39)
[2017-07-28] MEDS: PANTOPRAZOLE 40 MG INJ VIAL IVP SCH (09:39)
[2017-07-28] MEDS: DOCUSATE 100 MG/10 ML UDC PEG SCH ×2 (09:39→20:20)
--- NOTE | 2017-07-28 09:45 | NUR ---
FROM PODIATRY CHANGED SOFT CAST.
--- NOTE | 2017-07-28 10:15 | NUR ---
PT TF WAS HELD AND PT WAS REPOSITIONED AND GIVEN A SPONGE BATH AND PERINEAL CARE. PT TOLERATED ACTIVITY WELL. APPLIED Z GAURD AT SACRUM AND HYDRAGARD AT BILATERAL LOWER LEGS AND FEET. PT'S NEEDS MET AT THIS TIME. BED IN LOW POSITION, HIGH FOWLERS WITH CALL LIGHT WITHIN REACH, AND BED ALARM ACTIVATED.
--- NOTE | 2017-07-28 10:30 | NUR ---
PT FAMILY AT BEDSIDE. PT IS ALERT AWAKE AND SHOWS NO S/S OF ACUTE DISTRESS ON O2 @ 2L VIA NC.
--- NOTE | 2017-07-28 11:30 | NUR ---
DR NUÑEZ NOTIFIED AND UPDATED PT'S FAMILY AT BEDSIDE OF CURRENT POC.
[2017-07-28 12:00] VITALS: BP 161/75
[2017-07-28] MEDS ORDERED: CALCIUM ACETATE 667 MG TAB PO SCH ×2 (12:00)
--- NOTE | 2017-07-28 12:30 | NUR ---
ADMINISTERED SCHEDULED MEDICATIONS. GT FEEDING WAS HELD AND WAS ASPIRATED WITH 40 CC OF RESIDUAL FLUID. MEDICATIONS WERE CRUSHED AND GIVEN WITH STERILE WATER. GT THEN FLUSHED WITH 10CC OF STERILE WATER. TF CONTINUED AND PT AT HIGH FOWLERS POSITION WITH BED IN LOW POSITION WITH BED ALARM ACTIVATED. IV ABX INFUSING WELL. WILL CONTINUE TO MONITOR.
--- NOTE | 2017-07-28 13:22 | NUR ---
PT BEING SEE BY NEPHFABIOLA GOVEA
[2017-07-28] MEDS ORDERED: hydrALAZINE 20 MG/ML VIAL IVP PRN (13:35)
--- NOTE | 2017-07-28 13:50 | NUR ---
NEW IVF'S 1/2 NS IS INFUSING WELL AT 75 ML/HR AT IV SITE. ALSO NEW ORDERS FROM DR LOPEZ TO CHANGE FREE H2O FLUSH TO 250 ML Q4H.
[2017-07-28] MEDS: NACL 0.45% 1,000 ML IV SCH (13:55)
--- NOTE | 2017-07-28 14:53 | NUR ---
CALL PLACED TO SMILEY AT [facility] [phone] AND LEFT VM THAT PHYSICIAN IS ORDERING HOSPICE EVAL AND IF FAMILY CAN HAVE A CHOICE OF HOSPICES. WILL AWAIT CALL BACK.
--- NOTE | 2017-07-28 15:36 | NUR ---
CM NOTE CONCURRENT REVIEW FAXED TO [facility] / FAX# [phone], C: [phone]
--- NOTE | 2017-07-28 15:50 | NUR ---
PT IS RESTING COMFORTABLY AND SHOWS NO S/S OF ACUTE DISTRESS ON O2 @ 2L VIA NC. BED IS ON HIGH FOWLERS, BED IN LOW POSITION, WITH CALL LIGHT WITHIN REACH.
[2017-07-28 16:00] VITALS: BP 132/66
--- NOTE | 2017-07-28 16:15 | NUR ---
PT URINE WAS COLLECTED FROM ARTEAGA CATHETER PORT. SPECIMEN COLLECTED AND SENT TO LAB FOR URINE SODIUM.
--- NOTE | 2017-07-28 17:30 | NUR ---
PT IS RESTING IN BED AND SHOWS NO S/S OF ACUTE DISTRESS ON O2 @ 2L VIA NC.
--- NOTE | 2017-07-28 19:20 | NUR ---
PT REPORT GIVEN TO NIGHT NURSE AT BEDSIDE. PT ENDORSED IN STABLE CONDITION.
--- NOTE | 2017-07-28 19:21 | NUR ---
RECEIVED REPORT FROM DAY SHIFT RN AT PT BEDSIDE FOR CONTINUITY OF CARE. PT IS A/OX1, ON O2 @ 2L VIA NC. PT HAS A RIGHT HAND IV 22G INFUSING1/2 NS@75ML/HR. DTI TO RIGHT HEEL AND ERYTHEMA TO SACRUM. ARTEAGA CATHETER IN PLACE HOLDING YELLOW URINE WITH SEDIMENTS. SAFETY PRECAUTIONS IN PLACE. UPDATED BOARD. DISCUSSED PLAN OF CARE WITH PT, PT VERBALIZED UNDERSTANDING. VITAL SIGNS WITHIN NORMAL LIMITS. PT IN STABLE CONDITION, NO SIGNS OF DISTRESS NOTED. BED IN LOW POSITION, CALL LIGHT WITHIN REACH. WILL CONTINUE TO MONITOR.
[2017-07-28 20:00] VITALS: BP 155/73
[2017-07-28] MEDS: INSULIN DETEMIR 100 UNITS/ML 10 ML VIAL SUBQ SCH (20:23)
[2017-07-28] MEDS ORDERED: CALCIUM CARB/VIT-D 500 MG/200 IU 1 TAB PO SCH (21:00)
[2017-07-29] VITALS: BP 158/80
[2017-07-29] MEDS: Z-GUARD PASTE TP SCH ×2 (01:12→12:23)
[2017-07-29] MEDS: HYDRAGUARD CREAM TP SCH ×2 (01:12→12:23)
[2017-07-29] MEDS: NACL 0.45% 1,000 ML IV SCH ×2 (03:06→23:48)
[2017-07-29 04:00] VITALS: BP 157/69
--- NOTE | 2017-07-29 04:05 | NUR ---
SET UP NEW BAG OF DIABETIC SOURCE @35ML/HR. PT IN STABLE CONDITION, NO SIGNS OF DISTRESS NOTED. VITAL SIGNS STABLE. BED IN LOW POSITION, CALL LIGHT WITHIN REACH. WILL CONTINUE TO MONITOR.
[2017-07-29] MEDS: PIPER/TAZO 2.25GM/D5W PREMIX 50 ML IV SCH ×3 (05:24→20:47)
[2017-07-29 06:12] LABS: BASOPHILS # (AUTO) 0.2 K/uL (0.00-0.22); BASOPHILS % (AUTO) 1.8 % (0.0-2.0); EOSINOPHILS # (AUTO) 0.6 K/uL (0-0.4); EOSINOPHILS % (AUTO) 5.6 % (0.0-4.0); HEMATOCRIT 30.2 % (36-48); HEMOGLOBIN 10.1 g/dL (12.0-16.0); LYMPHOCYTES % (AUTO) 18.8 % (20.5-51.1); MEAN CORPUSCULAR HEMOGLOBIN 31 pg (27-31); MEAN CORPUSCULAR HGB CONC 33 g/dL (33-37); MEAN CORPUSCULAR VOLUME 92 fL (80-94); MONOCYTES # (AUTO) 0.4 K/uL (0.8-1.0); MONOCYTES % (AUTO) 3.6 % (1.7-9.3); NEUTROPHILS # (AUTO) 7.4 K/uL (1.8-7.7); NEUTROPHILS % (AUTO) 70.2 % (42.2-75.2); PLATELET COUNT (AUTO) 152 K/uL (140-450); RED CELL DISTRIBUTION WIDTH 11.5 % (11.6-13.7); WHITE BLOOD COUNT (AUTO) 10.6 K/uL (4.8-10.8)
[2017-07-29 06:31] LABS: CARBON DIOXIDE 34.6 mmol/L (21-32); CHLORIDE 108 mmol/L (98-107); CREATININE 0.9 mg/dL (0.6-1.3); GLUCOSE 184 mg/dL (74-106); POTASSIUM 3.6 mmol/L (3.5-5.1); SODIUM SERUM 146 mmol/L (136-145); UREA NITROGEN, BLOOD 20 mg/dL (7-18)
[2017-07-29 06:36] LABS: MAGNESIUM 1.8 mg/dL (1.8-2.4); PHOSPHORUS 2.1 mg/dL (2.5-4.9)
[2017-07-29] MEDS: BLOOD GLUCOSE MONITORING 1 DEV DEV FS SCH ×4 (06:45→20:34)
[2017-07-29] MEDS: INSULIN LISPRO SLIDING SCALE 100 UNITS/ML VIAL SUBQ PRN ×4 (06:46→20:42)
--- NOTE | 2017-07-29 07:34 | NUR ---
ENDORSED PT TO DAY SHIFT RN FOR CONTINUITY OF CARE. PT IN STABLE CONDITION.
--- NOTE | 2017-07-29 07:36 | NUR ---
RECEIVED REPORT FROM NIGHT JUANY GUPTA. PT SLEEPING IN BED. AAOX1, NO S/S OF ACUTE DISTRESS. FLACC-0. IV SITE PATENT AND INTACT. CALL LIGHT WITHIN REACH. SAFETY MEASURES ENSURED. WILL CONTINUE TO MONITOR.
[2017-07-29 08:00] VITALS: BP 152/66
[2017-07-29] MEDS: ATORVASTATIN 20 MG TAB GT SCH (09:00)
[2017-07-29] MEDS: amLODIPine 5 MG TAB GT SCH (09:00)
[2017-07-29] MEDS: LACTOBACILLUS RHAMNOSUS GG 1 EACH CAP PO SCH (09:00)
[2017-07-29] MEDS: ASPIRIN 81 MG TAB.CHEW PO SCH (09:01)
[2017-07-29] MEDS: PANTOPRAZOLE 40 MG INJ VIAL IVP SCH (09:01)
[2017-07-29] MEDS: CALCIUM CARB/VIT-D 500 MG/200 IU 1 TAB PO SCH ×3 (09:01→17:41)
[2017-07-29] MEDS: FOLIC ACID 1 MG TAB PEG SCH (09:01)
[2017-07-29] MEDS: DOCUSATE 100 MG/10 ML UDC PEG SCH ×2 (09:01→20:56)
[2017-07-29] MEDS: THIAMINE 200 MG/2 ML VIAL IM SCH (09:02)
[2017-07-29] MEDS: SODIUM PHOS / POTASSIUM PHOS 1 PKT PDR GT SCH ×2 (09:02→20:46)
[2017-07-29] MEDS: FLUCONAZOLE 200 MG/NS PREMIX 100 ML IV SCH (09:02)
--- NOTE | 2017-07-29 09:14 | NUR ---
AM MEDICATIONS GIVEN. PT SLEEPING. NO S/S OF ACUTE DISTRESS. FLACC-0. G-TUBE RESIDUAL 80 ML. CALL LIGHT WITHIN REACH. SAFETY MEASURES ENSURED. WILL CONTINUE TO MONITOR.
--- NOTE | 2017-07-29 12:07 | NUR ---
CM NOTE CONCURRENT REVIEW FAXED TO [facility] / FAX# [phone], C: [phone]
--- NOTE | 2017-07-29 12:44 | NUR ---
PT SLEEPING IN BED. NO S/S OF ACUTE DISTRESS. PT DENIES PAIN. CALL LIGHT WITHIN REACH. SAFETY MEASURES ENSURED. WILL CONTINUE TO MONITOR.
--- NOTE | 2017-07-29 14:55 | NUR ---
PT RESTING IN BED. NO S/S OF ACUTE DISTRESS. FLACC-0. CALL LIGHT WITHIN REACH. SAFETY MEASURES ENSURED. WILL CONTINUE TO MONITOR.
--- NOTE | 2017-07-29 15:51 | NUR ---
07/29/17 RD FOLLOW UP COMPLETED PLEASE REFER TO NUTRITION PROGRESS NOTE UNDER CARE ACTIVITY FOR ESTIMATED NUTRITION NEEDS. 1. CONTINUE NUTRITION SUPPORT DIABETISOURCE AT 15 ML/HR UNTIL BLOOD GLUCOSE LEVELS HAVE STABALIZED (< 200 MG/DL) 2. ONCE BLOOD GLUCOSE LEVELS HAVE STABILIZED, CONSIDER ADVANCING NUTRITION SUPPORT 15 ML Q4H TO NEW GOAL OF 65 ML/HR --WITH NEW GOAL PT WILL BE RECEIVING 1872 KCAL AND 94 GM PROTEIN MEETING 100% OF PT ESTIMATED NUTRIENT NEEDS 3. RD TO FOLLOW-UP 2-3 DAYS, HIGH RISK HELENA LESTER RD
[2017-07-29 16:00] VITALS: BP 145/63
--- NOTE | 2017-07-29 19:15 | NUR ---
ENDORSED PLAN OF CARE TO NIGHT RN. PT REMAINS STABLE.
--- NOTE | 2017-07-29 19:16 | NUR ---
PATIENT REPORT RECEIVED FROM MORNING NURSE AT BEDSIDE. PATIENT IS ASLEEP. BREATHING EVEN AND UNLABORED. NO SIGNS AND SYMPTOMS OF DISTRESS NOTED. PATIENT'S FAMILY IS AT BEDSIDE. PATIENT ON O2 2L VIA NC. IV SITE NOTED ON RIGHT FOREARM, IVF INFUSING WELL. G-TUBE IN PLACE, WITH CONTINUOUS FEEDING RUNNING AT 35ML/HR. ARTEAGA CATHETER IN PLACE, DRAINING YELLOW URINE. SAFETY PRECAUTIONS IN PLACE. BED IN LOWEST POSITION, SIDE RAILS UP AND CALL LIGHT WITHIN REACH. WILL CONTINUE TO MONITOR.
[2017-07-29 20:00] VITALS: BP 139/66
[2017-07-29] MEDS: INSULIN DETEMIR 100 UNITS/ML 10 ML VIAL SUBQ SCH (20:43)
--- NOTE | 2017-07-29 21:00 | NUR ---
COLACE HELD, PATIENT HAD 3 LOOSE STOOLS DURING DAY SHIFT
--- NOTE | 2017-07-29 23:30 | NUR ---
PATIENT HAD A BOWEL MOVEMENT. PATIENT WAS CLEANED AND PERICARE WAS DONE. PATIENT TOLERATED WELL. NO SIGNS AND SYMPTOMS OF DISTRESS NOTED.
[2017-07-30] VITALS: BP 150/67
[2017-07-30] MEDS: Z-GUARD PASTE TP SCH ×2 (01:09→13:00)
[2017-07-30] MEDS: HYDRAGUARD CREAM TP SCH ×2 (01:37→13:00)
--- NOTE | 2017-07-30 01:40 | NUR ---
CHECKED ON PATIENT. PATIENT IS ASLEEP. NO SIGNS AND SYMPTOMS OF DISTRESS NOTED. BREATHING EVEN AND UNLABORED. BED IN LOWEST POSITION, SIDE RAILS UP AND CALL LIGHT WITHIN REACH. WILL CONTINUE TO MONITOR.
[2017-07-30] MEDS: PIPER/TAZO 2.25GM/D5W PREMIX 50 ML IV SCH ×3 (04:14→20:36)
[2017-07-30] MEDS: INSULIN LISPRO SLIDING SCALE 100 UNITS/ML VIAL SUBQ PRN ×4 (06:09→20:41)
[2017-07-30 06:12] LABS: BASOPHILS # (AUTO) 0.2 K/uL (0.00-0.22); EOSINOPHILS # (AUTO) 0.5 K/uL (0-0.4); EOSINOPHILS % (AUTO) 5.1 % (0.0-4.0); HEMATOCRIT 30.1 % (36-48); HEMOGLOBIN 10.4 g/dL (12.0-16.0); LYMPHOCYTES # (AUTO) 1.4 K/uL (2.5-16.5); LYMPHOCYTES % (AUTO) 14.5 % (20.5-51.1); MEAN CORPUSCULAR HEMOGLOBIN 31 pg (27-31); MEAN CORPUSCULAR HGB CONC 35 g/dL (33-37); MEAN CORPUSCULAR VOLUME 90 fL (80-94); MONOCYTES # (AUTO) 0.4 K/uL (0.8-1.0); MONOCYTES % (AUTO) 4.5 % (1.7-9.3); NEUTROPHILS # (AUTO) 7.4 K/uL (1.8-7.7); NEUTROPHILS % (AUTO) 73.9 % (42.2-75.2); PLATELET COUNT (AUTO) 174 K/uL (140-450); RED BLOOD CELL COUNT(AUTO) 3.35 MIL/uL (4.20-5.40); RED CELL DISTRIBUTION WIDTH 11.6 % (11.6-13.7); WHITE BLOOD COUNT (AUTO) 9.9 K/uL (4.8-10.8)
[2017-07-30 06:32] LABS: ALBUMIN 2.1 g/dL (3.4-5.0); ANION GAP 8.8 (8-16); ASPARTATE AMINOTRANSFERASE 19 U/L (15-37); CARBON DIOXIDE 31.8 mmol/L (21-32); CHLORIDE 103 mmol/L (98-107); CREATININE 0.9 mg/dL (0.6-1.3); GLUCOSE 170 mg/dL (74-106); MAGNESIUM 1.8 mg/dL (1.8-2.4); PHOSPHORUS 2.6 mg/dL (2.5-4.9); POTASSIUM 3.6 mmol/L (3.5-5.1); SODIUM SERUM 140 mmol/L (136-145); TOTAL BILIRUBIN 0.8 mg/dL (0.0-1.0); UREA NITROGEN, BLOOD 18 mg/dL (7-18)
[2017-07-30] MEDS: BLOOD GLUCOSE MONITORING 1 DEV DEV FS SCH ×4 (06:33→20:35)
--- NOTE | 2017-07-30 07:24 | NUR ---
PATIENT REPORT GIVEN TO MORNING NURSE. PATIENT IS IN STABLE CONDITION.
--- NOTE | 2017-07-30 07:30 | NUR ---
RECEIVED REPORT FROM caustic cresylate shift superintendent. PT SLEEPING IN BED. AAOX1, NO S/S OF ACUTE DISTRESS. FLACC-0. IV SITE PATENT AND INTACT. CALL LIGHT WITHIN REACH. SAFETY MEASURES ENSURED. WILL CONTINUE TO MONITOR.
[2017-07-30 08:00] VITALS: BP 138/80
--- NOTE | 2017-07-30 08:35 | NUR ---
LATE ENTRY. ON 07/28 1430 SPOKE WITH DAUGHTER SUZY REGARDING HOSPICE EVAL AND SHE STATED THAT SHE WOULD LIKE A LIST OF HOSPICE AGENCIES. LIST WILL BE LEFT AT BEDSIDE. 07/29 1320 CALL PLACED TO SUZY REGARDING CHOICE OF HOSPICE AGENCIES VM LEFT REQUESTING A CALL BACK. 1330 SPOKE WITH SON VIKY REGARDING FAMILY CHOICE FOR HOSPICE AND HE REFERRED BACK TO SUZY FOR DECISION. NEVER RECEIVED CALL BACK FROM SUZY.
--- NOTE | 2017-07-30 09:00 | NUR ---
FEEDING PAUSED FOR 5MIN. PLACEMENT CHECKED WITH AUSCULTATION WITH AIR PUSHED IN. AIR REMOVED. 40ML OF RESIDUAL FROM G TUBE NOTED. FLUSHED WITH 30ML WATER. MEDICATIONS GIVEN, NO RESISTANCE FELT. FLUSHED WITH 40ML OF WATER. RESUMED FEED AT 35ML PER HOUR. PT TOLERATED WELL.
[2017-07-30] MEDS: FERROUS SULFATE 300 MG/5 ML UDC GT SCH (09:21)
[2017-07-30] MEDS: amLODIPine 5 MG TAB GT SCH (09:24)
[2017-07-30] MEDS: DOCUSATE 100 MG/10 ML UDC PEG SCH ×2 (09:24→21:00)
[2017-07-30] MEDS: CALCIUM CARB/VIT-D 500 MG/200 IU 1 TAB PO SCH ×3 (09:24→17:00)
[2017-07-30] MEDS: ATORVASTATIN 20 MG TAB GT SCH (09:25)
[2017-07-30] MEDS: PANTOPRAZOLE 40 MG INJ VIAL IVP SCH (09:25)
[2017-07-30] MEDS: LACTOBACILLUS RHAMNOSUS GG 1 EACH CAP PO SCH (09:25)
[2017-07-30] MEDS: THIAMINE 200 MG/2 ML VIAL IM SCH (09:26)
[2017-07-30] MEDS: FOLIC ACID 1 MG TAB PEG SCH (09:27)
[2017-07-30] MEDS: ASPIRIN 81 MG TAB.CHEW PO SCH (09:27)
[2017-07-30] MEDS: ASCORBIC ACID 500 MG TAB GT SCH (09:27)
[2017-07-30] MEDS: FLUCONAZOLE 200 MG/NS PREMIX 100 ML IV SCH (09:28)
--- NOTE | 2017-07-30 11:20 | NUR ---
Clinical review faxed to [facility] at [phone]. paper work and face sheet faxed to [facility] (formerly [facility]) at [phone]
[2017-07-30 16:00] VITALS: BP 141/59
--- NOTE | 2017-07-30 18:30 | NUR ---
PT HAD BM. ELIANE AREA CLEAN, PADS CHANGED. Z-GUARD APPLIED.
--- NOTE | 2017-07-30 19:20 | NUR ---
ENDORSED PT TO KILN FIREMAN. REPORT GIVEN AT BEDSIDE. PT IS ASLEEP. PT IS IN STABLE CONDITION AND NO S/S OF ACUTE DISTRESS.
--- NOTE | 2017-07-30 19:21 | NUR ---
PATIENT REPORT RECEIVED FROM MORNING NURSE AT BEDSIDE. PATIENT IS AWAKE AND ALERT. NO SIGNS AND SYMPTOMS OF DISTRESS NOTED. FAMILY MEMBER IS AT BEDSIDE. PATIENT IS ON O2 2L NC. G TUBE IS IN PLACE WITH TUBE FEEDING RUNNING. ARTEAGA CATHETER IN PLACE DRAINING YELLOW URINE. RIGHT LEG WRAPPED IN SOFT CAST. IV SITE NOTED ON RIGHT FOREARM. ASYMPTOMATIC, INTACT AND PATENT. BED IN LOWEST POSITION, SIDE RAILS UP AND CALL LIGHT WITHIN REACH. WILL CONTINUE TO MONITOR.
[2017-07-30] MEDS: INSULIN DETEMIR 100 UNITS/ML 10 ML VIAL SUBQ SCH (20:37)
--- NOTE | 2017-07-30 21:15 | NUR ---
PATIENT STARTED ON NEW BAG OF DIABETISOURCE TUBE FEEDING. RESIDUAL 5ML.
[2017-07-31] VITALS: BP 149/74
[2017-07-31] MEDS: Z-GUARD PASTE TP SCH ×2 (01:00→12:54)
[2017-07-31] MEDS: HYDRAGUARD CREAM TP SCH ×2 (01:00→12:54)
[2017-07-31] MEDS: INSULIN LISPRO SLIDING SCALE 100 UNITS/ML VIAL SUBQ PRN ×2 (06:32→12:44)
[2017-07-31] MEDS: BLOOD GLUCOSE MONITORING 1 DEV DEV FS SCH ×2 (06:32→11:25)
--- NOTE | 2017-07-31 07:27 | NUR ---
PATIENT REPORT GIVEN TO MORNING NURSE. PATIENT IS STABLE CONDITION.
--- NOTE | 2017-07-31 07:28 | NUR ---
RECEIVED REPORT FROM HVAC JOURNEYMAN NURSE DEVANG AT BEDSIDE FOR CONTINUITY OF CARE. PT IS AWAKE. A/OX1. INTRODUCED SELF AND UPDATED BOARD. CHECKED IV ON R FA 20 GSL AND L FA 20G SL INTACT. PT ON O2 NC 2L, O2 SAT AT 100%. HR 71, PACED. PT IS ON BEDREST. CHECKED RIGHT FOOT SPLINT INTACT. ERYTHEMA ON SACRAL AREA AND LEFT HEEL. PT TURNED TO RIGHT SIDE. HEELS ELEVATED ON PILLOWS. SCDS ON. G-TUBE IN LUQ. FEEDING TUBE RUNNING AT 35ML/HR. ADB BINDER ON. BS ACTIVE. ARTEAGA CATHETER IN PLACE. BED IN LOW POSITION, WHEELS LOCKED, CALL LIGHT WITHIN REACH. PT WEARING YELLOW GOWN, SOCKS, AND FALL ID BAND. SIGNS POSTED. NO SIGNS OF DISTRESS. WILL CONTINUE TO MONITOR.
[2017-07-31 07:50] LABS: BASOPHILS # (AUTO) 0.1 K/uL (0.00-0.22); BASOPHILS % (AUTO) 1.5 % (0.0-2.0); EOSINOPHILS # (AUTO) 0.4 K/uL (0-0.4); EOSINOPHILS % (AUTO) 4.6 % (0.0-4.0); HEMATOCRIT 30.7 % (36-48); HEMOGLOBIN 10.2 g/dL (12.0-16.0); LYMPHOCYTES # (AUTO) 1.4 K/uL (2.5-16.5); LYMPHOCYTES % (AUTO) 14.7 % (20.5-51.1); MEAN CORPUSCULAR HEMOGLOBIN 30 pg (27-31); MEAN CORPUSCULAR HGB CONC 33 g/dL (33-37); MEAN CORPUSCULAR VOLUME 91 fL (80-94); MONOCYTES # (AUTO) 0.5 K/uL (0.8-1.0); MONOCYTES % (AUTO) 5.6 % (1.7-9.3); NEUTROPHILS # (AUTO) 6.8 K/uL (1.8-7.7); NEUTROPHILS % (AUTO) 73.6 % (42.2-75.2); PLATELET COUNT (AUTO) 184 K/uL (140-450); RED BLOOD CELL COUNT(AUTO) 3.37 MIL/uL (4.20-5.40); RED CELL DISTRIBUTION WIDTH 11.7 % (11.6-13.7); WHITE BLOOD COUNT (AUTO) 9.2 K/uL (4.8-10.8)
[2017-07-31 08:00] VITALS: BP 143/61
[2017-07-31 08:17] LABS: ANION GAP 8.6 (8-16); CARBON DIOXIDE 31.2 mmol/L (21-32); CHLORIDE 106 mmol/L (98-107); CREATININE 0.9 mg/dL (0.6-1.3); GLUCOSE 205 mg/dL (74-106); MAGNESIUM 1.9 mg/dL (1.8-2.4); PHOSPHORUS 2.6 mg/dL (2.5-4.9); POTASSIUM 3.8 mmol/L (3.5-5.1); SODIUM SERUM 142 mmol/L (136-145); UREA NITROGEN, BLOOD 18 mg/dL (7-18)
[2017-07-31] MEDS: FERROUS SULFATE 300 MG/5 ML UDC GT SCH (08:39)
[2017-07-31] MEDS: FLUCONAZOLE 200 MG/NS PREMIX 100 ML IV SCH (08:40)
[2017-07-31] MEDS: ATORVASTATIN 20 MG TAB GT SCH (08:40)
[2017-07-31] MEDS: LACTOBACILLUS RHAMNOSUS GG 1 EACH CAP PO SCH (08:41)
[2017-07-31] MEDS: ASPIRIN 81 MG TAB.CHEW PO SCH (08:41)
[2017-07-31] MEDS: FOLIC ACID 1 MG TAB PEG SCH (08:41)
[2017-07-31] MEDS: ASCORBIC ACID 500 MG TAB GT SCH (08:41)
[2017-07-31] MEDS: CALCIUM CARB/VIT-D 500 MG/200 IU 1 TAB PO SCH ×2 (08:41→12:45)
[2017-07-31] MEDS: amLODIPine 5 MG TAB GT SCH (08:41)
[2017-07-31] MEDS: PANTOPRAZOLE 40 MG INJ VIAL IVP SCH (08:42)
[2017-07-31] MEDS: THIAMINE 200 MG/2 ML VIAL IM SCH (08:42)
[2017-07-31] MEDS: DOCUSATE 100 MG/10 ML UDC PEG SCH (08:43)
--- NOTE | 2017-07-31 10:00 | NUR ---
TODD FROM [facility] CAME IN AND SPOKE WITH PT AND PT'S FAMILY. FAMILY AWARE THAT PT WILL GO ON HOSPICE CARE AT [facility] IN [place]. RECEIVED NOTIFICATION BY TODD AND WILL WAIT FOR DISCHARGE ORDER AND ARRANGEMENT FOR TRANSFER. FAMILY IS AT BEDSIDE. PT IS LYING IN BED RIGHT NOW. HOB UP AT 35 DEGREES. NO SIGNS OF DISTRESS. WILL CONTINUE TO MONITOR.
[2017-07-31] MEDS ORDERED: VITC500 GT (10:54)
[2017-07-31] MEDS ORDERED: D50SYR IVP (10:54)
[2017-07-31] MEDS ORDERED: ATOR20TA40 GT (10:54)
[2017-07-31] MEDS ORDERED: VITB1I IM (10:54)
[2017-07-31] MEDS ORDERED: FER300L GT (10:54)
[2017-07-31] MEDS ORDERED: Hydraguard TP (10:54)
[2017-07-31] MEDS ORDERED: APR20I IVP (10:54)
[2017-07-31] MEDS ORDERED: GLUC-805 FS (10:54)
[2017-07-31] MEDS ORDERED: AMLO5TAB4 GT (10:54)
[2017-07-31] MEDS ORDERED: ACET-1182 PO (10:54)
[2017-07-31] MEDS ORDERED: PANT40PD7 IVP (10:54)
[2017-07-31] MEDS ORDERED: PNE23I IMVAC (10:54)
[2017-07-31] MEDS ORDERED: LEVEMIR SUBQ (10:54)
[2017-07-31] MEDS ORDERED: ZGUARD TP ×2 (10:54)
[2017-07-31] MEDS ORDERED: HUMSLIDE SUBQ (10:54)
[2017-07-31] MEDS ORDERED: ONDA2SOL45 IVP (10:54)
[2017-07-31] MEDS ORDERED: LACT10CA PO (10:54)
[2017-07-31] MEDS ORDERED: CALC-846 PO (10:54)
[2017-07-31] MEDS ORDERED: FOLI1TAB90 PEG (10:54)
[2017-07-31] MEDS ORDERED: COL100L PEG (10:54)
[2017-07-31] MEDS ORDERED: ACET-9529 PO (10:54)
[2017-07-31] MEDS ORDERED: ASPI81CT95 PO (10:54)
--- NOTE | 2017-07-31 11:17 | NUR ---
ADMINISTERED PNA VACCINE IM TO R DELTOID. PT TOLERATED WELL. BS WAS 207. WILL ADMINISTER INSULIN PER SLIDING SCALE. FAMILY MEMBERS AT BEDSIDE. FAMILY AWARE OF PLAN FOR D/C TO [facility] IN [place] ON HOSPICE. PT IS SLEEPING IN BED NOW. HOB 35 DEGREES. WILL CONTINUE TO MONITOR.
--- NOTE | 2017-07-31 12:13 | NUR ---
CHECKED G-TUBE RESIDUAL. 50ML NOTED. INCREASED FEEDING PUMP RATE TO 55ML/HR. PT TOLERATED WELL. SITTING UP IN BED WITH HOB 40 DEGREES. NO SIGNS OF DISTRESS. WILL CONTINUE TO MONITOR.
--- NOTE | 2017-07-31 15:09 | NUR ---
CALLED [facility] AND GAVE REPORT TO VASYL HARRINGTON. TOLD HER ADVERTISING DIRECTOR TIME IN BETWEEN 4PM-5PM.
--- NOTE | 2017-07-31 15:44 | NUR ---
CHECKED G-TUBE RESIDUAL. 50ML NOTED. FEEDING PUMP AT 55ML/HR. PT UNABLE TO SIGN D/C FORMS. CALLED DM SALMON AND INFORMED HIM OF TRANSFER TO [facility] ADDRESS [address] [place] [address]. SON AWARE AND STATED HE WILL SEE PT TOMORROW AT [place]. REMOVED IV CATHETER FROM RIGHT FA 20G. AND LEFT FA 20G. IV CATHETER TIPS INTACT. APPLIED DRESSING AND PRESSURE TO SITE. NO BLEEDING NOTED. PT CHANGED IN ORANGE GOWN. ID BANDS REMOVED. WILL AWAIT FOR PICK-UP BY TRANSPORTER.
--- NOTE | 2017-07-31 16:20 | NUR ---
PT D/C'D FOR TRANSFER TO [facility]. D/C'D FEEDING PUMP. G-TUBE CLAMPED AND IN PLACE. ARTEAGA CATHETER IN PLACE. 600ML URINE NOTED. GAVE REPORT TO TRANSPORTERS AND GAVE DOCUMENTS AND PT BELONGINGS. PT LEFT IN STABLE CONDITION VIA GURNEY.
== END 2017-07-31 16:20 | disposition hospice, inpatient (51) | DRG 871 ==
LOC: MED 19:35 → MTU 07-26 00:21
PROVIDERS: ADMIT Family Medicine; ATTEND Family Medicine
PROC: 3E0234Z Introduction of Serum, Toxoid and Vaccine into Muscle, Percutaneous Approach (ICD-10-PCS; principal; 2017-07-31)
DX: A41.9 Sepsis, unspecified organism (principal); G93.41 Metabolic encephalopathy; N17.0 Acute kidney failure with tubular necrosis; E43 Unspecified severe protein-calorie malnutrition; E87.3 Alkalosis; D68.59 Other primary thrombophilia; E11.42 Type 2 diabetes mellitus with diabetic polyneuropathy; I50.43 Acute on chronic combined systolic (congestive) and diastolic (congestive) heart failure; E87.0 Hyperosmolality and hypernatremia; N39.0 Urinary tract infection, site not specified; I69.354 Hemiplegia and hemiparesis following cerebral infarction affecting left non-dominant side; I42.9 Cardiomyopathy, unspecified; E11.51 Type 2 diabetes mellitus with diabetic peripheral angiopathy without gangrene; E11.622 Type 2 diabetes mellitus with other skin ulcer; L98.429 Non-pressure chronic ulcer of back with unspecified severity; D64.9 Anemia, unspecified; E83.41 Hypermagnesemia; E83.39 Other disorders of phosphorus metabolism; E87.8 Other disorders of electrolyte and fluid balance, not elsewhere classified; E83.51 Hypocalcemia; R80.9 Proteinuria, unspecified; S31.000A Unspecified open wound of lower back and pelvis without penetration into retroperitoneum, initial encounter; L85.3 Xerosis cutis; M21.6X2 Other acquired deformities of left foot; M21.6X1 Other acquired deformities of right foot; E11.65 Type 2 diabetes mellitus with hyperglycemia; F02.80 Dementia in other diseases classified elsewhere, unspecified severity, without behavioral disturbance, psychotic disturbance, mood disturbance, and anxiety; I11.0 Hypertensive heart disease with heart failure; E86.0 Dehydration; S90.921A Unspecified superficial injury of right foot, initial encounter; G30.9 Alzheimer's disease, unspecified; N28.1 Cyst of kidney, acquired; S82.831A Other fracture of upper and lower end of right fibula, initial encounter for closed fracture; E78.5 Hyperlipidemia, unspecified; X58.XXXA Exposure to other specified factors, initial encounter; Y93.89 Activity, other specified; Y92.89 Other specified places as the place of occurrence of the external cause; Y99.8 Other external cause status; Z95.0 Presence of cardiac pacemaker; Z68.24 Body mass index [BMI] 24.0-24.9, adult; Z93.1 Gastrostomy status; Z79.899 Other long term (current) drug therapy; Z23 Encounter for immunization
CPT/HCPCS: 36415; 36600; 70450; 71010; 73610; 80048; 80053; 81001; 81025; 82140; 82306; 82550; 82553; 82803; 82948; 83540; 83605; 83690; 83735; 83880; 84100; 84300; 84484; 85025; 85610; 85730; 86886; 86900; 86901; 87040; 87070; 87081; 87086; 87205; 89220; 90732; 93005; 97110; 97140; 99285; C9113; J1450; J1815; J2543; J3370; J3411; J7030; J7060; Q0092